=== PATIENT | female | born 1990 | race Two or more races ===

== ENCOUNTER 2019-03-02 01:29 | Emergency (ER) | payer MEDICAID ==
[~2019-03-02] VITALS: Ht 154.9 cm; Wt 88.5 kg
[2019-03-02 01:40] VITALS: BP 114/74
--- NOTE | 2019-03-02 01:41 | NUR ---
ED Nurse Note: Patient presents with complaints of itchy rash, unknown status. urine collected prior to rooming.
[2019-03-02] MEDS ORDERED: Acetaminophen 500mg (ES) tab ORAL ONE (02:15)
[2019-03-02] MEDS ORDERED: DiphenhydrAMINE 25mg/10ml Elixir ORAL ONE (02:15)
[2019-03-02 02:30] LABS: APPEARANCE,URINE CLEAR; BILIRUBIN, URINE NEGATIVE (NEGATIVE); COLOR,URINE PALE YELLOW; GLUCOSE, URINE (UA) NEGATIVE (NEGATIVE); KETONES,URINE NEGATIVE (NEGATIVE); LEUKOCYTE ESTERASE ,URINE NEGATIVE (NEGATIVE); NITRITE,URINE NEGATIVE (NEGATIVE); PH,URINE 7 (4.5-8.0); PROTEIN,URINE NEGATIVE (NEGATIVE); UROBILINOGEN,URINE NORMAL MG/DL (0.0-1.0)
--- NOTE | 2019-03-02 02:55 | NUR ---
ED Nurse Note: Urine test order added as intended. awaiting results prior to discharge.
[2019-03-02] MEDS ORDERED: BENADRYL25 MG ORAL (03:21)
[2019-03-02] MEDS ORDERED: PREDNISONE20 MG ORAL (03:21)
[2019-03-02 03:38] VITALS: BP 114/74
--- NOTE | 2019-03-02 03:38 | NUR ---
ED Nurse Note: Patient cleared for discharge, ID band removed. Patient verbalized understanding of discharge instructions. Patient departed with all belongings.
--- NOTE | 2019-03-04 21:54 | Emergency Room Report ---
History of Present Illness General Chief Complaint: Skin Rash/Abscess Source: Patient Present Illness Allergies: Coded Allergies: No Known Allergies (Unverified , 03/02/19) Patient History Last Menstrual Period: 12/30/18 Now: Yes - unsure : 0 Para: 0 Nursing Documentation-[facility] Past Medical History: No History, Except For Hx Gastrointestinal Problems: Yes - gall stones Physical Exam Vital Signs Date Time Temp Pulse Resp B/P (MAP) Pulse Ox O2 Delivery O2 Flow Rate FiO2 03/02/19 01:40 98.2 79 16 114/74 97 Room Air Medical Decision Making Diagnostic Impression: Primary Impression: Urticaria Labs Test 03/02/19 01:50 Urine Color Pale yellow Urine Appearance Clear Urine pH 7 (4.5-8.0) Urine Specific [place] 1.005 (1.005-1.035) Urine Protein Negative (NEGATIVE) Urine Glucose (UA) Negative (NEGATIVE) Urine Ketones Negative (NEGATIVE) Urine Blood 1+ (NEGATIVE) Urine Nitrite Negative (NEGATIVE) Urine Bilirubin Negative (NEGATIVE) Urine Urobilinogen Normal MG/DL (0.0-1.0) Urine Leukocyte Esterase Negative (NEGATIVE) Urine RBC 0-2 /HPF (0 - 2) Urine WBC 0-2 /HPF (0 - 2) Urine Squamous Epithelial Cells Few /LPF (NONE/OCC) Urine Bacteria Occasional /HPF (NONE) Urine HCG, Qualitative Negative (NEGATIVE) Last Vital Signs Date Time Temp Pulse Resp B/P (MAP) Pulse Ox O2 Delivery O2 Flow Rate FiO2 03/02/19 03:38 98.2 79 16 114/74 97 Room Air Status: improved Disposition: HOME, SELF-CARE Condition: Stable Scripts Diphenhydramine Hcl* (BENADRYL*) 25 Mg Capsule 25 MG ORAL Q6H PRN for Itching, #30 CAP Prov: Louis Arora MD 03/02/19 Prednisone* (PREDNISONE*) 20 Mg Tablet 40 MG ORAL DAILY, #10 TAB Prov: Louis Arora MD 03/02/19 Patient Instructions: Louis Tinsley MD Mar 04, 2019 21:54
== END 2019-03-02 03:38 | disposition home or self-care (01) ==
LOC: EMR 01:59
DX: L50.9 Urticaria, unspecified (principal)
CPT/HCPCS: 81003; 81025; 99283

== ENCOUNTER 2019-03-17 21:53 | Emergency (ER) | payer MEDICAID ==
[~2019-03-17] VITALS: Ht 154.9 cm; Wt 88.5 kg
[~2019-03-17 21:53] MED LIST: BENADRYL25 MG ORAL; PREDNISONE20 MG ORAL
[2019-03-17 21:55] VITALS: BP 105/65
--- NOTE | 2019-03-17 21:55 | NUR ---
ED Nurse Note: pt ambulated to ed c/o upper left and right quadrant pain radiatin to the back x 3 days. pt states n/v/d is present. pt iv line established, blood and urine specimen sent to lab. mother kumar at bedside
--- NOTE | 2019-03-17 22:13 | Emergency Room Report ---
History of Present Illness General Chief Complaint: Abdominal Pain Source: Patient Present Illness HPI Is a 28-year-old female who has a history of gallstone. She presents with chief complaint of epigastric and upper quadrant pain. Onset for last 3 days. Pain going to her back and rating to the left side. GEN vomiting. Occasional diarrhea. No fever chills. Seen by primary care yesterday and had ultrasound done. She had an ultrasound 2 years prior and it showed gallstone. 8 out of 10. Vomiting is nonbloody nonbilious. Diarrhea is loose stool. Allergies: Coded Allergies: No Known Allergies (Unverified , 03/02/19) Patient History Past Medical History: see triage record, old chart reviewed Past Surgical History: none Pertinent Family History: none Social History: Denies: smoking Last Menstrual Period: 03/16/19 Now: No Immunizations: other Reviewed Nursing Documentation: PMH: Agreed; PSxH: Agreed Nursing Documentation-PMH Hx Gastrointestinal Problems: Yes - gall stones Review of Systems Eye: Denies: eye pain, blurred vision ENT: Denies: ear pain, nose congestion, throat swelling Respiratory: Denies: cough, shortness of breath Cardiovascular: Denies: chest pain, palpitations Gastrointestinal: Reports: abdominal pain, nausea, vomiting; Denies: diarrhea Musculoskeletal: Denies: back pain, joint pain Skin: Denies: rash Neurological: Denies: headache, numbness Endocrine: Denies: increased thirst, increased urine Hematologic/Lymphatic: Denies: easy bruising All Other Systems: negative except mentioned in HPI Physical Exam Vital Signs Date Time Temp Pulse Resp B/P (MAP) Pulse Ox O2 Delivery O2 Flow Rate FiO2 03/17/19 21:54 98.6 99 18 103/65 (78) 97 Room Air Sp02 EP Interpretation: reviewed, normal General Appearance: well appearing, no apparent distress, alert Head: normocephalic, atraumatic Eyes: bilateral eye PERRL, bilateral eye EOMI ENT: hearing grossly normal, normal pharynx Neck: full range of motion, supple, no meningismus Respiratory: chest non-tender, lungs clear, normal breath sounds Cardiovascular #1: regular rate, rhythm, no murmur Gastrointestinal: normal bowel sounds, no mass, no organomegaly, no bruit, non- distended, tenderness - RUQ Musculoskeletal: back normal, gait/station normal, normal range of motion Psychiatric: mood/affect normal Medical Decision Making Diagnostic Impression: Primary Impression: Biliary colic Additional Impression: Cholelithiasis Qualified Codes: K80.20 - Calculus of gallbladder without cholecystitis without obstruction ER Course Patient presents with right upper quadrant and epigastric pain. She has known gallstones. She had an ultrasound done yesterday already. I see no need to repeat. No evidence of or obstruction based on the lab. She felt better now. Will discharge home. No evidence of acute abdomen. Last Vital Signs Date Time Temp Pulse Resp B/P (MAP) Pulse Ox O2 Delivery O2 Flow Rate FiO2 03/17/19 21:54 98.6 99 18 103/65 (78) 97 Room Air Status: improved Disposition: HOME, SELF-CARE Condition: Stable Scripts Hydrocodone/Acetaminophen 5-325* (HYDROCODONE/ACETAMINOPHEN 5-325*) 1 Each Tablet 1 TAB ORAL Q6H PRN for For Pain, #20 TAB 0 Refills Prov: Solomon Garcia MD 03/17/19 Famotidine (PEPCID AC) 20 Mg Tablet 20 MG PO Q12HR, #30 TAB Prov: Solomon Garcia MD 03/17/19 Additional Instructions: Follow-up with your doctor in a week. You may need a referral to see a surgeon if continue with problem with your gallbladder. Return if symptoms worsen. Solomon Garcia MD Mar 17, 2019 22:13
[2019-03-17] MEDS ORDERED: Ketorolac 30mg Inj IV ONE (22:15)
[2019-03-17 22:20] LABS: APPEARANCE,URINE SLIGHTLY CLOUDY; BILIRUBIN, URINE NEGATIVE (NEGATIVE); GLUCOSE, URINE (UA) NEGATIVE (NEGATIVE); KETONES,URINE 4+ (NEGATIVE); LEUKOCYTE ESTERASE ,URINE 1+ (NEGATIVE); NITRITE,URINE NEGATIVE (NEGATIVE); PH,URINE 5 (4.5-8.0); PROTEIN,URINE 1+ (NEGATIVE); UROBILINOGEN,URINE 1 MG/DL (0.0-1.0)
[2019-03-17 22:22] LABS: COLOR,URINE YELLOW
[2019-03-17 22:43] LABS: ANION GAP 9 mmol/L (5-15); BLOOD UREA NITROGEN 10 mg/dL (7-18); CALCIUM 9.2 MG/DL (8.5-10.1); CARBON DIOXIDE 25 MMOL/L (21-32); CHLORIDE 101 MMOL/L (98-107); CREATININE 0.5 MG/DL (0.55-1.30); POTASSIUM 3.6 MMOL/L (3.5-5.1); SODIUM 135 MMOL/L (136-145)
[2019-03-17 22:47] LABS: ALANINE AMINOTRANSFERASE 46 U/L (12-78); ALBUMIN 3.8 G/DL (3.4-5.0); ALBUMIN/GLOBULIN RATIO 0.8 (1.0-2.7); ALKALINE PHOSPHATASE 59 U/L (46-116); ASPARTATE AMINO TRANSFERASE 19 U/L (15-37)
[2019-03-17 22:50] LABS: BASOPHILS % (AUTO) 1.6 % (0.0-2.0); EOSINOPHILS % (AUTO) 0.8 % (0.0-3.0); HEMATOCRIT 41.3 % (37.0-47.0); HEMOGLOBIN 13.8 G/DL (12.0-16.0); LYMPHOCYTES % (AUTO) 23.6 % (20.0-45.0); MEAN CORPUSCULAR VOLUME 85 FL (80-99); MONOCYTES % (AUTO) 7.6 % (1.0-10.0); NEUTROPHILS % (AUTO) 66.3 % (45.0-75.0); PLATELET COUNT 305 K/UL (150-450); RED BLOOD COUNT 4.84 M/UL (4.20-5.40); RED CELL DISTRIBUTION WIDTH 13.6 % (11.6-14.8)
[2019-03-17] MEDS ORDERED: Morphine Sulfate 4mg/ml Inj (IV USE ONLY) ONE (22:50)
[2019-03-17] MEDS ORDERED: Morphine Sulfate 4mg/ml Inj (IV USE ONLY) IVP ONE (23:00)
[2019-03-17] MEDS ORDERED: PEPCID AC20 M2 PO (23:00)
[2019-03-17] MEDS ORDERED: HYDROCODON-ACE1 EA15 ORAL (23:00)
--- NOTE | 2019-03-17 23:20 | NUR ---
ER DISCHARGE NOTE: Patient is cleared to be discharged per ERMD, pt is aox4, on room air, with stable vital signs. pt was given dc and prescription instructions, pt was able to verbalize understanding, pt id band and iv site removed without complications. pt is able to ambulate with steady gait. pt took all belongings.
[2019-03-17 23:21] VITALS: BP 103/56
== END 2019-03-17 23:20 | disposition home or self-care (01) ==
LOC: EMR 23:17
DX: K80.20 Calculus of gallbladder without cholecystitis without obstruction (principal)
CPT/HCPCS: 36415; 80053; 81003; 81025; 83690; 85025; 96361; 96374; 96375; 99284; J1885; J2270; J2405

== ENCOUNTER 2019-04-08 06:06 | Inpatient (IN) | payer MEDICAID ==
[~2019-04-08] VITALS: Ht 154.9 cm; Wt 76.2 kg
[2019-04-08] VITALS (8 sets, daily range): BP systolic 108–132; BP diastolic 58–77
[~2019-04-08 06:06] MED LIST changes: +CEPHALEXIN500 MG ORAL; +FAMOTIDINE20 MG ORAL; +HYDROCODON-ACE1 EA15 ORAL; +PEPCID AC20 M2 PO; +ROBAXIN-750750 MG PO; +VOLTAREN100 G1 TP
[2019-04-08] MEDS ORDERED: Morphine Sulfate 2mg/ml Inj(IV/IM USE ONLY) IVP ONE (06:30)
[2019-04-08] MEDS ORDERED: Ketorolac 30mg Inj IV ONE (06:30)
--- NOTE | 2019-04-08 06:34 | Emergency Room Report ---
History of Present Illness General Chief Complaint: Abdominal Pain Source: Patient Present Illness HPI Disclaimer: Please note that this report is being documented using [employer] technology. This can lead to erroneous entry secondary to incorrect interpretation by the dictating instrument. HPI: This a 28-year-old female with a history of obesity and gallstones presenting for evaluation of abdominal pain. She was seen in the emergency department 2 days ago complaining of right upper quadrant abdominal pain nausea and vomiting. She was diagnosed with gallstones earlier this month by an outpatient ultrasound performed by her PCP. She has not yet seen a surgeon but did follow-up with her PCP yesterday. States that overnight she began to have worsening right upper quadrant epigastric abdominal pain as well as pain in the shoulders bilaterally. She is having bilious emesis but nonbloody. Denies diarrhea, lower pelvic pain, vaginal bleeding, vaginal discharge, dysuria, hematuria. She did note some fevers and a temperature of 100 degrees yesterday. She was treated for urinary tract infection on last visit with Keflex and received a shot of Rocephin at her PMDs as well. Patient states that on her PCP visit yesterday they informed her that they lost the results of her ultrasound and she is scheduled for repeat in 2 weeks. She otherwise denies current fever, chills, chest pain, shortness of breath, sore throat, cough, new rash PMH: GERD, gallstones, obesity PSH: Denies Allergies: Denies Social Hx: Denies drug, alcohol or tobacco use Allergies: Coded Allergies: No Known Allergies (Unverified , 03/02/19) Patient History Last Menstrual Period: 03/01/19 Now: No Nursing Documentation-PMH Past Medical History: No History, Except For Review of Systems All Other Systems: negative except mentioned in HPI Physical Exam Vital Signs Date Time Temp Pulse Resp B/P (MAP) Pulse Ox O2 Delivery O2 Flow Rate FiO2 04/08/19 06:15 98.4 102 18 117/75 (89) 95 Room Air General: Awake and alert, no acute distress HEENT: NC/AT. EOMI. Neck: Supple, trachea midline Chest Wall: No tenderness, no deformity Cardiovascular: RRR. S1 and S2 normal. No murmur appreciated Resp: Normal work of breathing. No cough, wheezing or crackles appreciated Abdomen: Abdomen is soft, nondistended. Obese. Tenderness in the epigastrium and right upper quadrant. There is positive Dumont sign. No tenderness in the lower quadrants. No tenderness in the left upper quadrant. Skin: Intact. No abrasions, laceration or rash over the exposed skin MSK: Normal tone and bulk. Moving all extremities. No obvious deformity. Neuro: Awake and alert. Mentating appropriately. Back/Spine: Mild flank pain bilaterally and CVA tenderness Medical Decision Making Diagnostic Impression: Primary Impression: Acute cholecystitis Additional Impression: Abdominal pain ER Course This 28-year-old female with a history of gallstones presenting for evaluation of bilious emesis and worsening right upper quadrant epigastric abdominal pain beginning last night. The patient is currently being treated for UTI with Keflex from her last emergency department visit 2 days ago. We will start IV fluids, antiemetics, pain medication, repeat labs and send the patient for an ultrasound of the right upper quadrant to rule out acute cholecystitis. Laboratory Tests Test 04/08/19 06:35 White Blood Count 17.7 K/UL (4.8-10.8) H Red Blood Count 4.46 M/UL (4.20-5.40) Hemoglobin 12.9 G/DL (12.0-16.0) Hematocrit 39.2 % (37.0-47.0) Mean Corpuscular Volume 88 FL (80-99) Mean Corpuscular Hemoglobin 28.8 PG (27.0-31.0) Mean Corpuscular Hemoglobin Concent 32.8 G/DL (32.0-36.0) Red Cell Distribution Width 12.8 % (11.6-14.8) Platelet Count 250 K/UL (150-450) Mean Platelet Volume 9.0 FL (6.5-10.1) Neutrophils (%) (Auto) 76.9 % (45.0-75.0) H Lymphocytes (%) (Auto) 14.9 % (20.0-45.0) L Monocytes (%) (Auto) 6.8 % (1.0-10.0) Eosinophils (%) (Auto) 0.7 % (0.0-3.0) Basophils (%) (Auto) 0.7 % (0.0-2.0) Urine Color Yellow Urine Appearance Clear Urine pH 6 (4.5-8.0) Urine Specific [place] 1.020 (1.005-1.035) Urine Protein 2+ (NEGATIVE) H Urine Glucose (UA) Negative (NEGATIVE) Urine Ketones 4+ (NEGATIVE) H Urine Blood 4+ (NEGATIVE) H Urine Nitrite Negative (NEGATIVE) Urine Bilirubin Negative (NEGATIVE) Urine Urobilinogen 1 MG/DL (0.0-1.0) H Urine Leukocyte Esterase 3+ (NEGATIVE) H Urine RBC 5-10 /HPF (0 - 2) H Urine WBC 10-15 /HPF (0 - 2) H Urine Squamous Epithelial Cells Few /LPF (NONE/OCC) Urine Bacteria Few /HPF (NONE) Urine Mucus Few /LPF (NONE/OCC) H Urine HCG, Qualitative Negative (NEGATIVE) Sodium Level 140 MMOL/L (136-145) Potassium Level 3.5 MMOL/L (3.5-5.1) Chloride Level 103 MMOL/L (98-107) Carbon Dioxide Level 24 MMOL/L (21-32) Anion Gap 13 mmol/L (5-15) Blood Urea Nitrogen 11 mg/dL (7-18) Creatinine 0.5 MG/DL (0.55-1.30) L Estimate Glomerular Filtration Rate > 60 mL/min (>60) Glucose Level 107 MG/DL (74-106) H Calcium Level 9.2 MG/DL (8.5-10.1) Total Bilirubin 1.2 MG/DL (0.2-1.0) H Direct Bilirubin 0.3 MG/DL (0.0-0.3) Aspartate Amino Transferase (AST) 23 U/L (15-37) Alanine Aminotransferase (ALT) 58 U/L (12-78) Alkaline Phosphatase 58 U/L (46-116) Total Protein 8.3 G/DL (6.4-8.2) H Albumin 3.4 G/DL (3.4-5.0) Globulin 4.9 g/dL Albumin/Globulin Ratio 0.7 (1.0-2.7) L Lipase 76 U/L (73-393) Reevaluation Time: 08:10 Last Vital Signs Date Time Temp Pulse Resp B/P (MAP) Pulse Ox O2 Delivery O2 Flow Rate FiO2 04/08/19 06:15 98.4 102 18 117/75 (89) 95 Room Air Status: unchanged Reevaluation Impression Labs show an elevated white count that is increasing from prior visits, persistent leukocyte esterase but few are bacteria seen on this urinalysis. LFTs are within normal limits. Ultrasound shows large stones at the neck of the gallbladder with a dilated CBD, trace pericholecystic fluid and edematous gallbladder wall. There is positive sonographic Dumont's. Will discuss with surgery. IV fluids and pain medications are continued 0830: She has been evaluated by general surgery who will order a HIDA scan and the patient will be admitted medically. Likely cholecystectomy as an inpatient. She understands and agrees to the treatment plan will be admitted after HIDA scan Disposition: ADMITTED INPATIENT Condition: Serious Pa Dinh MD Apr 08, 2019 06:34
--- NOTE | 2019-04-08 06:35 | NUR ---
ED Nurse Note: Recieved pt from home, here with c/o abdominal pain with nausea intermittently for 1 week w/ gallstones, pt is awake, alert and orieneted x 4, ambulatory, denies cp, sob, or any other complaints, pt urine collected and assisted with gowning, will resume care as ordered and closely monitor.
[2019-04-08 07:00] LABS: APPEARANCE,URINE CLEAR; BILIRUBIN, URINE NEGATIVE (NEGATIVE); GLUCOSE, URINE (UA) NEGATIVE (NEGATIVE); KETONES,URINE 4+ (NEGATIVE); LEUKOCYTE ESTERASE ,URINE 3+ (NEGATIVE); NITRITE,URINE NEGATIVE (NEGATIVE); PH,URINE 6 (4.5-8.0); PROTEIN,URINE 2+ (NEGATIVE); UROBILINOGEN,URINE 1 MG/DL (0.0-1.0)
[2019-04-08 07:10] LABS: ANION GAP 13 mmol/L (5-15); BLOOD UREA NITROGEN 11 mg/dL (7-18); CALCIUM 9.2 MG/DL (8.5-10.1); CARBON DIOXIDE 24 MMOL/L (21-32); CHLORIDE 103 MMOL/L (98-107); CREATININE 0.5 MG/DL (0.55-1.30); POTASSIUM 3.5 MMOL/L (3.5-5.1); SODIUM 140 MMOL/L (136-145)
[2019-04-08 07:11] LABS: COLOR,URINE YELLOW
[2019-04-08 07:19] LABS: ALANINE AMINOTRANSFERASE 58 U/L (12-78); ALBUMIN 3.4 G/DL (3.4-5.0); ALBUMIN/GLOBULIN RATIO 0.7 (1.0-2.7); ALKALINE PHOSPHATASE 58 U/L (46-116); ASPARTATE AMINO TRANSFERASE 23 U/L (15-37); BILIRUBIN,TOTAL 1.2 MG/DL (0.2-1.0)
--- NOTE | 2019-04-08 07:25 | NUR ---
ED Nurse Note: US staff Tangela at the bed side. Pt with no distress and speaks in full sentences.
[2019-04-08] MEDS ORDERED: NKM (07:27)
[2019-04-08 07:31] LABS: BILIRUBIN,DIRECT 0.3 MG/DL (0.0-0.3)
[2019-04-08 07:34] LABS: BASOPHILS % (AUTO) 0.7 % (0.0-2.0); EOSINOPHILS % (AUTO) 0.7 % (0.0-3.0); HEMATOCRIT 39.2 % (37.0-47.0); HEMOGLOBIN 12.9 G/DL (12.0-16.0); LYMPHOCYTES % (AUTO) 14.9 % (20.0-45.0); MEAN CORPUSCULAR VOLUME 88 FL (80-99); MONOCYTES % (AUTO) 6.8 % (1.0-10.0); NEUTROPHILS % (AUTO) 76.9 % (45.0-75.0); PLATELET COUNT 250 K/UL (150-450); RED BLOOD COUNT 4.46 M/UL (4.20-5.40); RED CELL DISTRIBUTION WIDTH 12.8 % (11.6-14.8); WHITE BLOOD COUNT 17.7 K/UL (4.8-10.8)
[2019-04-08] MEDS ORDERED: Morphine Sulfate 4mg/ml Inj (IV USE ONLY) IVP ONE (08:00)
--- NOTE | 2019-04-08 08:15 | NUR ---
ED Nurse Note: Dr Keita at the bed side.
--- NOTE | 2019-04-08 08:26 | Consultation ---
History of Present Illness General Date patient seen: Apr 08, 2019 Reason for Hospitalization: Abdominal Pain Present Illness HPI 28F otherwise healthy presented to ED with complaints of epigastric / RUQ abdominal pain x 1 day with associated nausea and emesis. Pain 8/10 cramping sharp epigastric / RUQ with radiation to the back. Associated nausea and bilious emesis. Has had similar episodes for the past year. Has been following with her PCP outpatient for evaluation and work up. Hx diagnosed with cholelithiasis and was planning for cholecystectomy given recurrent symptoms. Currently with persistent RUQ pain, tenderness, and leukocytosis. LFT's okay. US with GB wall thickening and pericholecystic fluid. Surgery called to evaluate and assist with care. patient seen, chart reviewed, patient examined. Allergies: Coded Allergies: No Known Allergies (Unverified , 03/02/19) Medication History Scheduled Cephalexin* (Keflex*), 500 MG ORAL EVERY 6 HOURS Diclofenac Sodium (Voltaren), 2 GM TP TID Famotidine (Pepcid Ac), 20 MG PO Q12HR Famotidine (Famotidine), 20 MG ORAL DAILY Methocarbamol* (Robaxin-750*), 750 MG PO TID No Known Medications* (NKM - No Known Medications*), 0 ., (Reported) Scheduled PRN Hydrocodone/Acetaminophen 5-325* (Hydrocodone/Acetaminophen 5-325*), 1 TAB ORAL Q6H PRN for For Pain Patient History History Provided By: Patient Healthcare decision maker Resuscitation status Advanced Directive on File Past Medical/Surgical History Past Medical/Surgical History: (1) Abdominal pain (2) Acute cholecystitis Review of Systems Review of Symptoms General ROS: no weight loss or fever Psychological ROS: no depression or mood changes, no memory loss Ophthalmic ROS: no visual changes or eye irritation ENT ROS: no nasal congestion, hearing loss, dizziness Allergy and Immunology ROS: no allergic symptoms or urticaria Hematological and Lymphatic ROS: no swollen glands, unusual bleeding or bruising Endocrine ROS: no polyuria, polydipsia, weight changes, temperature intolerance Respiratory ROS: no cough, shortness of breath, or wheezing Cardiovascular ROS: no chest pain or dyspnea on exertion Gastrointestinal ROS: abdominal pain, no bright red blood in stool. Musculoskeletal ROS: no myalgias or arthralgias Neurological ROS: no TIA or stroke symptoms Dermatological ROS: no new or changing skin lesions, rashes or pruritis Physical Exam Physical Exam General appearance: alert, cooperative, no distress, appears stated age Head: Normocephalic, without obvious abnormality, atraumatic Eyes: conjunctivae/corneas clear. PERRL, EOM's intact. Fundi benign Throat: Lips, mucosa, and tongue normal. Teeth and gums normal Neck: supple, symmetrical, trachea midline, no adenopathy, thyroid: not enlarged, symmetric, no tenderness/mass/nodules, no carotid bruit and no JVD Lungs: clear to auscultation bilaterally Heart: regular rate and rhythm, S1, S2 normal, no murmur, click, rub or gallop Abdomen: soft, RUQ-tender. Bowel sounds normal. No masses, no organomegaly Extremities: extremities normal, atraumatic, no cyanosis or edema Pulses: 2+ and symmetric Skin: Skin color, texture, turgor normal. No rashes or lesions Neurologic: Grossly normal Last 24 Hour Vital Signs Date Time Temp Pulse Resp B/P (MAP) Pulse Ox O2 Delivery O2 Flow Rate FiO2 04/08/19 07:30 98.6 104 20 118/66 98 Room Air 04/08/19 07:20 98.4 04/08/19 07:20 98.4 04/08/19 06:25 102 18 Room Air 04/08/19 06:15 98.4 102 18 117/75 (89) 95 Room Air Intake and Output 04/07/19 04/08/19 19:00 07:00 Output Total 200 ml Balance -200 ml Output Urine Total 200 ml Laboratory Tests Test 04/08/19 06:35 White Blood Count 17.7 K/UL (4.8-10.8) H Red Blood Count 4.46 M/UL (4.20-5.40) Hemoglobin 12.9 G/DL (12.0-16.0) Hematocrit 39.2 % (37.0-47.0) Mean Corpuscular Volume 88 FL (80-99) Mean Corpuscular Hemoglobin 28.8 PG (27.0-31.0) Mean Corpuscular Hemoglobin Concent 32.8 G/DL (32.0-36.0) Red Cell Distribution Width 12.8 % (11.6-14.8) Platelet Count 250 K/UL (150-450) Mean Platelet Volume 9.0 FL (6.5-10.1) Neutrophils (%) (Auto) 76.9 % (45.0-75.0) H Lymphocytes (%) (Auto) 14.9 % (20.0-45.0) L Monocytes (%) (Auto) 6.8 % (1.0-10.0) Eosinophils (%) (Auto) 0.7 % (0.0-3.0) Basophils (%) (Auto) 0.7 % (0.0-2.0) Urine Color Yellow Urine Appearance Clear Urine pH 6 (4.5-8.0) Urine Specific [place] 1.020 (1.005-1.035) Urine Protein 2+ (NEGATIVE) H Urine Glucose (UA) Negative (NEGATIVE) Urine Ketones 4+ (NEGATIVE) H Urine Blood 4+ (NEGATIVE) H Urine Nitrite Negative (NEGATIVE) Urine Bilirubin Negative (NEGATIVE) Urine Urobilinogen 1 MG/DL (0.0-1.0) H Urine Leukocyte Esterase 3+ (NEGATIVE) H Urine RBC 5-10 /HPF (0 - 2) H Urine WBC 10-15 /HPF (0 - 2) H Urine Squamous Epithelial Cells Few /LPF (NONE/OCC) Urine Bacteria Few /HPF (NONE) Urine Mucus Few /LPF (NONE/OCC) H Urine HCG, Qualitative Negative (NEGATIVE) Sodium Level 140 MMOL/L (136-145) Potassium Level 3.5 MMOL/L (3.5-5.1) Chloride Level 103 MMOL/L (98-107) Carbon Dioxide Level 24 MMOL/L (21-32) Anion Gap 13 mmol/L (5-15) Blood Urea Nitrogen 11 mg/dL (7-18) Creatinine 0.5 MG/DL (0.55-1.30) L Estimat Glomerular Filtration Rate > 60 mL/min (>60) Glucose Level 107 MG/DL (74-106) H Calcium Level 9.2 MG/DL (8.5-10.1) Total Bilirubin 1.2 MG/DL (0.2-1.0) H Direct Bilirubin 0.3 MG/DL (0.0-0.3) Aspartate Amino Transf (AST/SGOT) 23 U/L (15-37) Alanine Aminotransferase (ALT/SGPT) 58 U/L (12-78) Alkaline Phosphatase 58 U/L (46-116) Total Protein 8.3 G/DL (6.4-8.2) H Albumin 3.4 G/DL (3.4-5.0) Globulin 4.9 g/dL Albumin/Globulin Ratio 0.7 (1.0-2.7) L Lipase 76 U/L (73-393) Height (Feet): 5 Height (Inches): 1.00 Weight (Pounds): 196 Medications Current Medications Medications (Trade) Dose Ordered Sig/Marnie Route PRN Reason Start Time Stop Time Status Last Admin Dose Admin Sodium Chloride 1,000 ml @ 999 mls/hr Q1H1M ONCE IV 04/08/19 08:15 04/08/19 09:15 04/08/19 08:11 Assessment/Plan Problem List: (1) Acute cholecystitis Assessment & Plan: 28F with abd pain, n/v, leukocytosis. US with GB wall thickening and perichole fluid. exam with RUQ tenderness + murphys. NPO IV fluids HIDA ordered IV abx will follow with recs. thank you for allowing me to participate in patients care. ICD Codes: K81.0 - Acute cholecystitis SNOMED: 35026035 (2) Abdominal pain ICD Codes: R10.9 - Unspecified abdominal pain SNOMED: 46975271 Luis Miguel Keita Apr 08, 2019 08:26
--- NOTE | 2019-04-08 09:47 | NUR ---
ED Nurse Note: Pt/family member are aware of hospital admission and VSS. Waiting for isotope.
--- NOTE | 2019-04-08 10:45 | Diagnostic Imaging Report ---
Indication: Abdominal pain, elevated bilirubin, leukocytosis Technique: Esposito-scale and duplex images of the upper abdomen were obtained Comparison: none Findings: Gallbladder demonstrates gallstones. Gallbladder wall is thickened, measuring up to 5 mm thick. There is also some gallbladder wall edema and trace pericholecystic fluid. There is trace cholecystic fluid or sonographic Dumont sign is positive. Common bile duct measures 7 mm in diameter. No intrahepatic biliary ductal dilatation. Liver is somewhat enlarged, demonstrates diffusely increased echogenicity, consistent with diffuse hepatocellular disease, most likely fatty change. Portal vein and hepatic veins are patent. Pancreas is unremarkable. Spleen is unremarkable. Left kidney measures 12.8 cm in length. Right kidney measures 11.4 cm length. Both kidneys demonstrate normal echogenicity. There is no hydronephrosis. No focal abnormality . Non-aneurysmal abdominal aorta . Impression: Cholelithiasis. Gallbladder wall thickening and positive sonographic Dumont's sign raises concern for acute cholecystitis Mildly dilated common bile duct. Downstream obstruction not excludable. Correlate with liver function tests, consider MRCP if clinically indicated Liver demonstrates diffusely increased echogenicity, consistent with diffuse hepatocellular disease, most likely fatty change. It is somewhat enlarged
--- NOTE | 2019-04-08 11:43 | NUR ---
ED Nurse Note: Pt taken to Nuclear medicine dept.
[2019-04-08] MEDS ORDERED: Morphine Sulfate 2mg/ml Inj(IV/IM USE ONLY) IVP SCH (12:45)
--- NOTE | 2019-04-08 13:08 | GI Initial Consult Note ---
History of Present Illness General Date patient seen: Apr 08, 2019 Time patient seen: 13:02 Reason for Hospitalization: Abdominal Pain Reason for Consultation: CHOLELITHASIS Present Illness HPI his a 28-year-old female with a history of obesity and gallstones presenting for evaluation of abdominal pain. She was seen in the emergency department 2 days ago complaining of right upper quadrant abdominal pain nausea and vomiting. She was diagnosed with gallstones earlier this month by an outpatient ultrasound performed by her PCP. She has not yet seen a surgeon but did follow-up with her PCP yesterday. States that overnight she began to have worsening right upper quadrant epigastric abdominal pain as well as pain in the shoulders bilaterally. She is having bilious emesis but nonbloody. Denies diarrhea, lower pelvic pain, vaginal bleeding, vaginal discharge, dysuria, hematuria. She did note some fevers and a temperature of 100 degrees yesterday. She was treated for urinary tract infection on last visit with Keflex and received a shot of Rocephin at her PMDs as well. Patient states that on her PCP visit yesterday they informed her that they lost the results of her ultrasound and she is scheduled for repeat in 2 weeks. She otherwise denies current fever, chills, chest pain, shortness of breath, sore throat, cough, new rash. GI consulted for reported abdominal pain, nausea and vomiting. Initial HPI as seen above. Patient seen, no apparent distress alert and oriented. Patient currently scheduled for HIDA scan. Abdominal ultrasound shows cholelithiasis, gallbladder wall thickening and positive sonographic Dumont's sign. Mildly dilated common bile duct 7 mm. Downstream obstruction not excludable. Liver demonstrates diffuse increase echogenicity, consistent with diffuse hepatocellular disease. Laboratory data reviewed; WBC 17.7, no anemia, total bilirubin of 1.2, lipase of 76. No history of endoscopic colonoscopy. Home Meds Active Scripts Famotidine (FAMOTIDINE) 20 Mg Tablet, 20 MG ORAL DAILY, #30 TAB 0 Refills Prov:Bria Ruelas 04/06/19 Methocarbamol* (ROBAXIN-750*) 750 Mg Tablet, 750 MG PO TID, #21 TAB 0 Refills Prov:RayshawnmogBria bartlett 04/06/19 Diclofenac Sodium (VOLTAREN) 100 Gm Gel..gram., 2 GM TP TID, #100 GM Prov:Bria Ruelas 04/06/19 Cephalexin* (KEFLEX*) 500 Mg Capsule, 500 MG ORAL EVERY 6 HOURS for 7 Days, #28 CAP Prov:Bria Ruelas 04/06/19 Hydrocodone/Acetaminophen 5-325* (HYDROCODONE/ACETAMINOPHEN 5-325*) 1 Each Tablet, 1 TAB ORAL Q6H PRN for For Pain, #20 TAB 0 Refills Prov:Solomon Garcia MD 03/17/19 Famotidine (PEPCID AC) 20 Mg Tablet, 20 MG PO Q12HR, #30 TAB Prov:Solomon Garcia MD 03/17/19 Reported Medications No Known Medications* (NKM - No Known Medications*) ., 0 ., 0 Refills 04/08/19 Med list reviewed/reconciled: Yes Allergies: Coded Allergies: No Known Allergies (Unverified , 03/02/19) Patient History History Provided By: Patient PMH Narrative PMH: GERD, gallstones, obesity PSH: Denies Allergies: Denies Social Hx: Denies drug, alcohol or tobacco use Allergies: Coded Allergies: No Known Allergies (Unverified , 03/02/19) Patient History Last Menstrual Period: 03/01/19 Now: No Nursing Documentation-PM Past Medical History: No History, Except For Social History: Denies: smoking, alcohol use, drug use, other Review of Systems All Other Systems: negative except mentioned in HPI Physical Exam Vital Signs Date Time Temp Pulse Resp B/P (MAP) Pulse Ox O2 Delivery O2 Flow Rate FiO2 04/08/19 06:15 98.4 102 18 117/75 (89) 95 Room Air Sp02 EP Interpretation: reviewed, normal Labs Laboratory Tests Test 04/08/19 06:35 White Blood Count 17.7 K/UL (4.8-10.8) H Red Blood Count 4.46 M/UL (4.20-5.40) Hemoglobin 12.9 G/DL (12.0-16.0) Hematocrit 39.2 % (37.0-47.0) Mean Corpuscular Volume 88 FL (80-99) Mean Corpuscular Hemoglobin 28.8 PG (27.0-31.0) Mean Corpuscular Hemoglobin Concent 32.8 G/DL (32.0-36.0) Red Cell Distribution Width 12.8 % (11.6-14.8) Platelet Count 250 K/UL (150-450) Mean Platelet Volume 9.0 FL (6.5-10.1) Neutrophils (%) (Auto) 76.9 % (45.0-75.0) H Lymphocytes (%) (Auto) 14.9 % (20.0-45.0) L Monocytes (%) (Auto) 6.8 % (1.0-10.0) Eosinophils (%) (Auto) 0.7 % (0.0-3.0) Basophils (%) (Auto) 0.7 % (0.0-2.0) Urine Color Yellow Urine Appearance Clear Urine pH 6 (4.5-8.0) Urine Specific [place] 1.020 (1.005-1.035) Urine Protein 2+ (NEGATIVE) H Urine Glucose (UA) Negative (NEGATIVE) Urine Ketones 4+ (NEGATIVE) H Urine Blood 4+ (NEGATIVE) H Urine Nitrite Negative (NEGATIVE) Urine Bilirubin Negative (NEGATIVE) Urine Urobilinogen 1 MG/DL (0.0-1.0) H Urine Leukocyte Esterase 3+ (NEGATIVE) H Urine RBC 5-10 /HPF (0 - 2) H Urine WBC 10-15 /HPF (0 - 2) H Urine Squamous Epithelial Cells Few /LPF (NONE/OCC) Urine Bacteria Few /HPF (NONE) Urine Mucus Few /LPF (NONE/OCC) H Urine HCG, Qualitative Negative (NEGATIVE) Sodium Level 140 MMOL/L (136-145) Potassium Level 3.5 MMOL/L (3.5-5.1) Chloride Level 103 MMOL/L (98-107) Carbon Dioxide Level 24 MMOL/L (21-32) Anion Gap 13 mmol/L (5-15) Blood Urea Nitrogen 11 mg/dL (7-18) Creatinine 0.5 MG/DL (0.55-1.30) L Estimat Glomerular Filtration Rate > 60 mL/min (>60) Glucose Level 107 MG/DL (74-106) H Calcium Level 9.2 MG/DL (8.5-10.1) Total Bilirubin 1.2 MG/DL (0.2-1.0) H Direct Bilirubin 0.3 MG/DL (0.0-0.3) Aspartate Amino Transf (AST/SGOT) 23 U/L (15-37) Alanine Aminotransferase (ALT/SGPT) 58 U/L (12-78) Alkaline Phosphatase 58 U/L (46-116) Total Protein 8.3 G/DL (6.4-8.2) H Albumin 3.4 G/DL (3.4-5.0) Globulin 4.9 g/dL Albumin/Globulin Ratio 0.7 (1.0-2.7) L Lipase 76 U/L (73-393) General Appearance: well appearing, no apparent distress, alert, obese Head: normocephalic EENT: PERRL/EOMI, normal ENT inspection Neck: supple Respiratory: normal breath sounds, no respiratory distress Cardiovascular: normal rate Gastrointestinal: normal inspection, non tender, soft, normal bowel sounds, non -distended Rectal: deferred Genitourinary: no CVA tenderness Musculoskeletal: normal inspection, back normal Neurologic: normal inspection, alert, oriented x3, responsive Psychiatric: normal inspection, judgement/insight normal, memory normal Skin: normal inspection, normal color, no rash, warm/dry, palpation normal, well hydrated Lymphatic: normal inspection, no adenopathy Current Medications Current Medications Medications (Trade) Dose Ordered Sig/Marnie Route PRN Reason Start Time Stop Time Status Last Admin Dose Admin Morphine Sulfate (Morphine Sulfate) 2 mg ONCE IVP 04/08/19 12:45 04/08/19 14:00 04/08/19 12:53 GI: Plan Problems: (1) Abdominal pain (2) Acute cholecystitis Plan Abdominal ultrasound reviewed Patient pending HIDA scan We will defer MRCP that at this time given normal LFTs and normal lipase levels Follow-up with surgical recommendations for possible cholecystectomy Maintain n.p.o. plus IV fluids Pain management Zofran as needed follow labs Discussed with Dr. Lu. Thank you for this patient referral, we will follow. The patient was seen and examined at bedside and all new and available data was reviewed in the patients chart. I agree with the above findings, impression and plan. (Patient seen earlier today. Signature stamp does not reflect patient encounter time.). - MD Radha Ramos,[facility] Apr 08, 2019 13:08
[2019-04-08] MEDS ORDERED: Mylanta II UD 30ml ORAL PRN (13:30)
--- NOTE | 2019-04-08 13:39 | NUR ---
NM Hepatobiliary (HIDA) scan complete.
--- NOTE | 2019-04-08 13:40 | NUR ---
ED Nurse Note: Pt came back from Nuclear medicine dept. VSS.
--- NOTE | 2019-04-08 13:46 | NUR ---
ED Nurse Note: Report given to Darrell SOTELO of Med Surg unit.
--- NOTE | 2019-04-08 13:52 | NUR ---
ED Nurse Note: Pt transferred to Med Surg unit via new assisted by Kristan gerard. Belonging sent with pt. JACQUELINE.
--- NOTE | 2019-04-08 14:07 | NUR ---
NURSE NOTES: received pt awake alert, aox 4 ambulatory, no c/o pain at this time. paged dr Lay for admit orders awaiting call back.
--- NOTE | 2019-04-08 14:12 | Pre-Procedure Note/Attestation ---
Pre-Procedure Note/Attestation Complete Prior to Procedure Planned Procedure: not applicable Procedure Narrative: laparoscopic cholecystectomy possible open Indications for Procedure Pre-Operative Diagnosis: acute cholecystitis Attestation I attest that I discussed the nature of the procedure; its benefits; risks and complications; and alternatives (and the risks and benefits of such alternatives ), prior to the procedure, with the patient (or the patient's legal independent sales representative). I attest that, if there was a reasonable possibility of needing a blood transfusion, the patient (or the patient's legal independent sales representative) was given the [facility] standardized written summary, pursuant to the Jose Reema Blood Safety Act ([place] Health and Safety Code # 1645, as amended). I attest that I re-evaluated the patient just prior to the surgery and that there has been no change in the patient's H&P, except as documented below: Luis Miguel Keita Apr 08, 2019 14:12
--- NOTE | 2019-04-08 15:00 | NUR ---
NURSE NOTES: Spoke to regarding admission order and new order received. Order read back and carried out.
[2019-04-08] MEDS: NS w/KCl 20mEq 1000ml 1,000 ML IV SCH (15:20)
[2019-04-08] MEDS: Piperacillin/Tazobactam 3.375 GM in NS 110 ML IVPB SCH ×2 (15:20→21:25)
--- NOTE | 2019-04-08 17:29 | Diagnostic Imaging Report ---
Indications: Reason For Exam: ABD PAIN Technique: IV administration mCi 99 M technetium Choletec. Serial images obtained over the abdomen for 2 hrs . At one hour, IV administration 2 mg of morphine Comparison: None Findings: Prompt tracer uptake within the liver. Extrahepatic bile ducts are seen at 22 minutes. Excretion into the duodenum demonstrated at 25 minutes. The gallbladder is never visualized . Impression: Nonvisualization of the gallbladder. This is concerning for acute cholecystitis Patent common bile duct Findings discussed by phone with Dr. Keita at approximately [phone]
--- NOTE | 2019-04-08 19:30 | NUR ---
NURSE NOTES: Received report from DEEPAK Cortez and rounds made with outgoing nurse. Received pt in bed, AOX4, pain level 6/10, will medicate for pain, denies nausea, no distress noted. IV R forearm infiltrated, will re-insert new IV. Bed in lowest position and locked, side rails up x 2, call light within reach. will continue to monitor.
--- NOTE | 2019-04-08 19:30 | NUR ---
HAND-OFF: Report given to Remington RN and Marian RN. Patient in stable condition.
--- NOTE | 2019-04-08 20:00 | NUR ---
NURSE NOTES: New IV re-inserted R forearm # 22 patent and intact. IV fluid resumed. Will continue to monitor.
[2019-04-08] MEDS: Morphine Sulfate 2mg/ml Inj(IV/IM USE ONLY) IVP PRN (21:05)
[2019-04-09] VITALS (16 sets, daily range): BP systolic 102–130; BP diastolic 49–74
[2019-04-09] MEDS: NS w/KCl 20mEq 1000ml 1,000 ML IV SCH ×2 (01:00→11:00)
[2019-04-09] MEDS: Piperacillin/Tazobactam 3.375 GM in NS 110 ML IVPB SCH ×3 (05:38→22:03)
[2019-04-09 06:27] LABS: BASOPHILS % (AUTO) 0.6 % (0.0-2.0); EOSINOPHILS % (AUTO) 1.2 % (0.0-3.0); HEMATOCRIT 34.9 % (37.0-47.0); HEMOGLOBIN 11.1 G/DL (12.0-16.0); LYMPHOCYTES % (AUTO) 21.5 % (20.0-45.0); MEAN CORPUSCULAR VOLUME 89 FL (80-99); MONOCYTES % (AUTO) 6.4 % (1.0-10.0); NEUTROPHILS % (AUTO) 70.3 % (45.0-75.0); PLATELET COUNT 228 K/UL (150-450); RED BLOOD COUNT 3.91 M/UL (4.20-5.40); RED CELL DISTRIBUTION WIDTH 12.8 % (11.6-14.8); WHITE BLOOD COUNT 12.9 K/UL (4.8-10.8)
[2019-04-09 06:31] LABS: INR 1.1 (0.9-1.1)
[2019-04-09 06:51] LABS: ALANINE AMINOTRANSFERASE 50 U/L (12-78); ALBUMIN 2.8 G/DL (3.4-5.0); ALBUMIN/GLOBULIN RATIO 0.7 (1.0-2.7); ALKALINE PHOSPHATASE 70 U/L (46-116); ANION GAP 12 mmol/L (5-15); ASPARTATE AMINO TRANSFERASE 23 U/L (15-37); BILIRUBIN,TOTAL 0.7 MG/DL (0.2-1.0); BLOOD UREA NITROGEN 11 mg/dL (7-18); CALCIUM 8.6 MG/DL (8.5-10.1); CARBON DIOXIDE 21 MMOL/L (21-32); CHLORIDE 109 MMOL/L (98-107); CREATININE 0.5 MG/DL (0.55-1.30); POTASSIUM 3.5 MMOL/L (3.5-5.1); SODIUM 142 MMOL/L (136-145)
--- NOTE | 2019-04-09 07:00 | NUR ---
HAND-OFF: Report given to Remington SOTELO. Patient is in stable condition. Addendum: 04/09/19 at 1910 by Massiel Mcknight RN Edit: Note entered with incorrect time stamp. Please disregard
--- NOTE | 2019-04-09 07:20 | NUR ---
HAND-OFF: Report given to DEEPAK Rankin. Pt in stable condition.
--- NOTE | 2019-04-09 07:45 | General Progress Note ---
Assessment/Plan Problem List: (1) Acute cholecystitis ICD Codes: K81.0 - Acute cholecystitis SNOMED: [id number] Assessment/Plan: npo iv abx pending surg for today Subjective ROS Limited/Unobtainable: Yes Allergies: Coded Allergies: No Known Allergies (Unverified , 03/02/19) Objective Last 24 Hour Vital Signs Date Time Temp Pulse Resp B/P (MAP) Pulse Ox O2 Delivery O2 Flow Rate FiO2 04/09/19 04:00 97.9 103 18 123/67 (85) 96 04/08/19 23:43 97.9 99 18 110/58 (75) 97 04/08/19 21:00 Room Air 04/08/19 20:00 99.6 98 17 132/75 (94) 99 04/08/19 16:00 98.1 110 18 126/77 (93) 96 04/08/19 14:12 Room Air 04/08/19 14:00 98.4 108 20 114/63 (80) 98 04/08/19 13:52 98.5 79 19 118/72 100 Room Air 04/08/19 13:40 98.7 82 16 122/75 96 Room Air 04/08/19 13:23 98.7 04/08/19 11:30 98.5 89 18 115/70 100 Room Air 04/08/19 09:30 98.2 100 17 108/60 99 Room Air 04/08/19 08:34 98.4 Intake and Output 04/08/19 04/09/19 19:00 07:00 Intake Total 2100 ml 837.5 ml Balance 2100 ml 837.5 ml Intake IV Total 2100 ml 837.5 ml # Voids 3 Laboratory Tests 04/09/19 04:35: White Blood Count 12.9H, Red Blood Count 3.91L, Hemoglobin 11.1L, Hematocrit 34.9L, Mean Corpuscular Volume 89, Mean Corpuscular Hemoglobin 28.5, Mean Corpuscular Hemoglobin Concent 32.0, Red Cell Distribution Width 12.8, Platelet Count 228, Mean Platelet Volume 8.3, Neutrophils (%) (Auto) 70.3, Lymphocytes (% ) (Auto) 21.5, Monocytes (%) (Auto) 6.4, Eosinophils (%) (Auto) 1.2, Basophils ( %) (Auto) 0.6, Prothrombin Time 11.2, Prothromb Time International Ratio 1.1, Activated Partial Thromboplast Time 29, Sodium Level 142, Potassium Level 3.5, Chloride Level 109H, Carbon Dioxide Level 21, Anion Gap 12, Blood Urea Nitrogen 11, Creatinine 0.5L, Estimat Glomerular Filtration Rate > 60, Glucose Level 72L , Calcium Level 8.6, Total Bilirubin 0.7, Aspartate Amino Transf (AST/SGOT) 23, Alanine Aminotransferase (ALT/SGPT) 50, Alkaline Phosphatase 70, Total Protein 7.1, Albumin 2.8L, Globulin 4.3, Albumin/Globulin Ratio 0.7L Height (Feet): 5 Height (Inches): 1.00 Weight (Pounds): 168 General Appearance: alert EENT: normal ENT inspection Neck: supple Cardiovascular: normal rate Respiratory/Chest: lungs clear Abdomen: normal bowel sounds, non tender, soft Extremities: non-tender Pernell Lu MD Apr 09, 2019 07:45
--- NOTE | 2019-04-09 07:57 | NUR ---
NURSE NOTES: Received report from DEEPAK Macedo. Pt in bed, awake, talkative, mild anxiety about pending surgery, discussed plan of care, bed in lowest position, call light within reach.
--- NOTE | 2019-04-09 08:25 | NUR ---
NURSE NOTES: Patient taken down to surgery by transporter. Rojas
[2019-04-09] MEDS ORDERED: fentaNYL 100 mcg/2 mL IV ONE (08:46)
[2019-04-09] MEDS ORDERED: Propofol 200mg/20ml IV ONE (08:46)
[2019-04-09] MEDS ORDERED: Midazolam 2mg/2ml Inj ONE (08:46)
[2019-04-09] MEDS ORDERED: Lidocaine 1% MPF 10mg/ml 5ml ONE (08:46)
[2019-04-09] MEDS ORDERED: Lidocaine 1% 10mg/ml/Epi 0.005mg/ml 30ml vial INJ ONE (09:03)
[2019-04-09] MEDS ORDERED: Iothalamate Meglumine 60% 30ML INJ ONE (09:04)
--- NOTE | 2019-04-09 09:37 | NUR ---
*-* INSURANCE *-* ALL AVAILABLE CLINICALS HAVE BEEN FAXED TO: [employer] REF#[id number] NO [employer] SUPERVISOR ASSIGNED YET PH#[phone] [employer] FAX#[phone] REVIEWS/CLINICALS
[2019-04-09] MEDS ORDERED: TransDerm Scop 1.5mg/72HR Patch TDERMAL ONE (09:43)
[2019-04-09] MEDS ORDERED: Zemuron 50mg/5ml Inj IV ONE (09:43)
[2019-04-09] MEDS ORDERED: Succinylcholine 20mg/ml 10ml vial ONE (09:43)
[2019-04-09] MEDS ORDERED: NS Irrig 2000ml IRRIG ONE ×2 (09:53→10:16)
[2019-04-09] MEDS ORDERED: Neostigmine 1mg/ml 10ml Inj ONE (10:00)
[2019-04-09] MEDS ORDERED: Sterile Water Irrig 1000ml IRRIG ONE (10:00)
[2019-04-09] MEDS ORDERED: LR 1000ml ONE (10:00)
--- NOTE | 2019-04-09 10:40 | Anethesia Preoperative Eval ---
Anesthesia Pre-op PMH/ROS General Date of Evaluation: Apr 09, 2019 Time of Evaluation: 09:55 Anesthesiologist: Vickie ASA Score: ASA 2 Mallampati Score Class I : Soft palate, uvula, fauces, pillars visible Class II: Soft palate, uvula, fauces visible Class III: Soft palate, base of uvula visible Class IV: Only hard plate visible Mallampati Classification: Class II Surgeon: Ramesh Diagnosis: Symptomatic cholelithiasis Surgical Procedure: Lap cholecystectomy Anesthesia History: none Family History: no anesthesia problems Allergies: Coded Allergies: No Known Allergies (Unverified , 03/02/19) Patient NPO?: Yes NPO Date: Apr 09, 2019 NPO Time: 0000 Past Medical History Cardiovascular: Denies: HTN, CAD, NV, valve dz, arrhythmia, other Pulmonary: Denies: asthma, COPD, AARON, other Gastrointestinal/Genitourinary: Reports: GERD, other - recurrent abdominal pain ; Denies: CRI, ESRD Neurologic/Psychiatric: Denies: dementia, CVA, depression/anxiety, TIA, other Endocrine: Denies: DM, hypothyroidism, steroids, other HEENT: Denies: cataract (L), cataract (R), glaucoma, UMKUMIUT (L), UMKUMIUT (R), other Hematology/Immune: Denies: anemia, DVT, bleeding disorder, other Musculoskeletal/Integumentary: Denies: OA, RA, DJD, DDD, edema, other Other: obesity PMH Narrative: as above PSxH Narrative: none Anesthesia Pre-op Phys. Exam Physician Exam Last Vital Signs Date Time Temp Pulse Resp B/P (MAP) Pulse Ox O2 Delivery O2 Flow Rate FiO2 04/09/19 08:00 98.6 107 16 130/73 (92) 98 04/08/19 21:00 Room Air Constitutional: NAD Neurologic: CN 2-12 intact Cardiovascular: RRR, no M/R/G Respiratory: CTA Gastrointestinal: other - some tenderness on palpation Airway Exam Mallampati Score: Class II MO: limited Neck: short ROM: full Teeth: intact Dentures: no upper, no lower Anesthesia Pre-op A/P Labs Hematology Test 04/09/19 04:35 White Blood Count 12.9 K/UL (4.8-10.8) H Red Blood Count 3.91 M/UL (4.20-5.40) L Hemoglobin 11.1 G/DL (12.0-16.0) L Hematocrit 34.9 % (37.0-47.0) L Mean Corpuscular Volume 89 FL (80-99) Mean Corpuscular Hemoglobin 28.5 PG (27.0-31.0) Mean Corpuscular Hemoglobin Concent 32.0 G/DL (32.0-36.0) Red Cell Distribution Width 12.8 % (11.6-14.8) Platelet Count 228 K/UL (150-450) Mean Platelet Volume 8.3 FL (6.5-10.1) Neutrophils (%) (Auto) 70.3 % (45.0-75.0) Lymphocytes (%) (Auto) 21.5 % (20.0-45.0) Monocytes (%) (Auto) 6.4 % (1.0-10.0) Eosinophils (%) (Auto) 1.2 % (0.0-3.0) Basophils (%) (Auto) 0.6 % (0.0-2.0) Coagulation Test 04/09/19 04:35 Prothrombin Time 11.2 SEC (9.30-11.50) Prothromb Time International Ratio 1.1 (0.9-1.1) Activated Partial Thromboplast Time 29 SEC (23-33) Chemistry Test 04/09/19 04:35 Sodium Level 142 MMOL/L (136-145) Potassium Level 3.5 MMOL/L (3.5-5.1) Chloride Level 109 MMOL/L (98-107) H Carbon Dioxide Level 21 MMOL/L (21-32) Anion Gap 12 mmol/L (5-15) Blood Urea Nitrogen 11 mg/dL (7-18) Creatinine 0.5 MG/DL (0.55-1.30) L Estimat Glomerular Filtration Rate > 60 mL/min (>60) Glucose Level 72 MG/DL (74-106) L Calcium Level 8.6 MG/DL (8.5-10.1) Total Bilirubin 0.7 MG/DL (0.2-1.0) Aspartate Amino Transf (AST/SGOT) 23 U/L (15-37) Alanine Aminotransferase (ALT/SGPT) 50 U/L (12-78) Alkaline Phosphatase 70 U/L (46-116) Total Protein 7.1 G/DL (6.4-8.2) Albumin 2.8 G/DL (3.4-5.0) L Globulin 4.3 g/dL Albumin/Globulin Ratio 0.7 (1.0-2.7) L Risk Assessment & Plan Assessment: ASA 2 Plan: GA with ETT PONV prevention Status Change Before Surgery: No Pre-Antibiotics Drug: Ancef 1gr. Given Within 1 Hr of Incision: Yes Time Given: 10:15 Rajan Johnston MD Apr 09, 2019 10:40
[2019-04-09] MEDS ORDERED: LR 1000ml 1,000 ML IVLG SCH (10:42)
[2019-04-09] MEDS ORDERED: TransDerm Scop 1.5mg/72HR Patch TDERMAL SCH (10:44)
[2019-04-09] MEDS ORDERED: Morphine Sulfate 10mg/ml Inj ONE (10:45)
[2019-04-09] MEDS ORDERED: Ketorolac 30mg Inj IV PRN (10:45)
[2019-04-09] MEDS ORDERED: Midazolam 2mg/2ml Inj IVP PRN (10:45)
[2019-04-09] MEDS ORDERED: Glycopyrrolate 0.2mg/ml 1ml Vial ONE (10:45)
[2019-04-09] MEDS ORDERED: Sodium Chloride 10ml vial INJ ONE (10:45)
[2019-04-09] MEDS ORDERED: Metoclopramide 10mg/2ml Inj IVP PRN ×3 (10:45→15:00)
[2019-04-09] MEDS ORDERED: Ketorolac 30mg Inj ONE (10:45)
[2019-04-09] MEDS ORDERED: Meperidine 50mg/ml Inj(FOR RIGORS ONLY) IV PRN (10:45)
--- NOTE | 2019-04-09 11:54 | NUR ---
CASE MANAGEMENT: INITIAL REVIEW 28 YO F PRESENTED TO OUR ED FROM HOME CC: ABD PAIN PMHx: GERD. GALLSTONES. OBESITY. SI:CHOLECYSTITIS. T 98.4 HR 102 RR 18 B/P 117/75 SATS 95% ON RA WBC 17.7 CR 0.5 GLU 107 TBILI 1.5 UCx: PENDING IS: NS BOLUS X1 ZOFRAN IV X1 TORADOL IV X1 MORPHINE IV X1 PATIENT ADMITTED TO MED/SURG 04/08/2019 @ 1145 DCP: PATIENT TO BE DISCHARGED TO HOME ONCE MEDICALLY CLEARED. PLAN OF CARE: CONSENT FOR LAP MARILIN Addendum: 04/09/19 at 1621 by Miladys Pereira CM INTERQUAL MET
[2019-04-09 12:04] LABS: FERRITIN 143 NG/ML (8-388)
--- NOTE | 2019-04-09 12:06 | Immediate Post-Op Evaluation ---
Immediate Post-Op Evalulation Immediate Post-Op Evalulation Procedure: Laparoscopic cholecystectomy Date of Evaluation: Apr 09, 2019 Time of Evaluation: 12:05 IV Fluids: 1000 Blood Products: none Estimated Blood Loss: 50 Urinary Output: none Blood Pressure Systolic: 106 Blood Pressure Diastolic: 56 Pulse Rate: 108 Respiratory Rate: 22 O2 Sat by Pulse Oximetry: 99 Temperature (Fahrenheit): 97.8 Pain Score (1-10): 1 Nausea: No Vomiting: No Complications none Patient Status: reacts, patent, extubated, none Hydration Status: adequate Rajan Johnston MD Apr 09, 2019 12:06
[2019-04-09 12:16] LABS: % IRON SATURATION 15 % (15-50); IRON 27 ug/dL (50-175); TOTAL IRON BINDING CAPACITY 182 ug/dL (250-450)
[2019-04-09] MEDS: Morphine Sulfate 2mg/ml Inj(IV/IM USE ONLY) IVP PRN (13:15)
--- NOTE | 2019-04-09 13:34 | NUR ---
NURSE NOTES: Received report from DEEPAK Marquez in PACU. Pt brought to room 315-1 at 1300, pt is awake, talkative, complaining of pain 8/10, RN administered pain medication. Surgical site dressing clean, dry, and intact, pt able to move all extremities, pulses in lower extremities 2+, skin is warm. Pt given clear liquid diet tray, administered IV antibiotics and resumed pre-op IV fluids according to order, vitals obtain and charted, bed in lowest position, call light within reach.
--- NOTE | 2019-04-09 14:49 | Brief Operative Note ---
Immediate Post Operative Note Operative Note Pre-op Diagnosis: acute cholecystitis Procedure: lap debra Post-op Diagnosis: same as pre-op Surgeon: liliam Anesthesiologist: marifer Anesthesia: general, local Specimen: yes Complications: none Condition: stable Fluids: see records Estimated Blood Loss: minimal Drains: none Implant(s) used?: No Luis Miguel Keita Apr 09, 2019 14:49
[2019-04-09] MEDS ORDERED: Morphine Sulfate 2mg/ml Inj(IV/IM USE ONLY) IVP PRN ×2 (15:00)
[2019-04-09] MEDS ORDERED: Milk of Magnesia 30ml Ud ORAL PRN (15:00)
[2019-04-09] MEDS ORDERED: Sennosides 8.6mg tab ORAL PRN (15:00)
[2019-04-09] MEDS: Morphine Sulfate 4mg/ml Inj (IV USE ONLY) IVP PRN ×2 (15:17→19:42)
--- NOTE | 2019-04-09 18:30 | Consultation ---
DATE OF CONSULTATION: 04/09/2019 INFECTIOUS DISEASE CONSULTATION CONSULTING PHYSICIAN: Markus Mayfield M.D. PRIMARY ATTENDING: Wendi Lya M.D. REASON FOR CONSULT: Sepsis, acute cholecystitis. HISTORY OF PRESENT ILLNESS: This 28-year-old female admitted yesterday complaining of right upper quadrant abdominal pain. The patient's pain started 3 days ago. She had another visit to ER on 04/06/2019 because of abdominal pain. She was recently diagnosed with gallstone in the primary doctor office. In hospital, had tachycardia with heart rate of 102 and leukocytosis of 17.7. At home, had low-grade fever of 100. After admission, abdominal ultrasound showed gallstone and was suspected for acute cholecystitis. HIDA scan was positive. Today, the patient went to OR and had laparoscopic cholecystectomy. PAST MEDICAL HISTORY: Insignificant. MEDICATIONS: Getting famotidine, potassium chloride, Zosyn, morphine, Tylenol, Zofran, Benadryl, Mylanta. PAST MEDICAL HISTORY: Cholelithiasis, gastroesophageal reflux disease, obesity. SOCIAL HISTORY: . Denies alcohol, drug abuse, or smoking. PAST SURGICAL HISTORY: None. REVIEW OF SYSTEMS: As per history of present illness. Currently, the pain is controlled. PHYSICAL EXAMINATION: VITAL SIGNS: Temperature 97.8, pulse 109. GENERAL APPEARANCE: No acute distress. Awake, alert, oriented x3. HEAD AND NECK: [place] conjunctivae. HEART: Normal rate. LUNGS: Clear. ABDOMEN: Soft. EXTREMITIES: Has no edema. LABORATORY DATA: WBC today is 12.9, hemoglobin 11.7, hematocrit 34.9, platelets 228. Sodium 142, potassium 3.5, chloride 109, bicarb 21, BUN 11, creatinine is 2.1, glucose 72. UA showed wbc's of 10 to 15, rbc's of 5 to 10, leukocyte esterase 2+, blood 4+. Urine culture is so far negative. IMPRESSION: Sepsis with leukocytosis and tachycardia. Has acute cholecystitis, status post laparoscopic cholecystectomy. Has obesity and has gastroesophageal reflux disease. RECOMMENDATION: Continue Zosyn. We will follow up the operative report. At the end of my exam, I thank Dr. Lay for involving me in the care of this patient. Markus Mayfield M.D. DR: KRISTINE JOB#: [id number] CC: KYRA
--- NOTE | 2019-04-09 18:30 | NUR ---
NURSE NOTES: Patient reported one episode of emesis, was given Zofran PRN and reports relief. Diet not advanced due to emesis. Also informed Dr. Lay and Dr. Keita that patient had low grade fever earlier. Will continue to monitor.
--- NOTE | 2019-04-09 18:45 | Operative Note - Dictated ---
DATE OF OPERATION: 04/09/2019 PREOPERATIVE DIAGNOSIS: Acute cholecystitis. POSTOPERATIVE DIAGNOSIS: Acute cholecystitis. OPERATION PERFORMED: 1. Laparoscopic cholecystectomy. 2. Drainage of intra-abdominal peritoneal cyst from the gallbladder. ATTENDING SURGEON: Luis Miguel Keita M.D. BATCH DUMPER: None. ANESTHESIOLOGISTS: Rajan Johnston M.D. ANESTHESIA: General GETA. ESTIMATED BLOOD LOSS: Minimal. IV FLUIDS: Please see anesthesia records. COMPLICATIONS: None. DRAINS: None. COUNTS: Sponge and needle count correct x2. WOUND CLASSIFICATION: Class III. ANTIBIOTICS: The patient on scheduled IV antibiotics for acute inflammatory process. SPECIMENS: Gallbladder and contained stones sent to pathology for review. INDICATIONS FOR PROCEDURE: This is a 28-year-old female presented to emergency department at [facility] complaining of worsening right upper quadrant abdominal pain associated with nausea and emesis. The patient had a leukocytosis and ultrasound identifying a gallbladder wall thickness and consistent with acute cholecystitis. The patient had a HIDA scan identifying cystic duct obstruction. Surgery was indicated and recommended. Of note, the patient has had multiple prior incidents with similar events and required emergency department visits. Given these findings, surgery was discussed with the patient and risks, benefits, and alternatives were discussed in detail. The patient expressed understanding and consented to surgery. OPERATIVE NOTE: The patient taken to the operating room and placed on the operating table in supine position with bilateral arms out. All bony prominences were well padded. SCDs were placed. Preoperative time-out taken in identifying the patient, procedure, operative staff, and surgical staff. The patient already on scheduled IV antibiotics prior to entering the operating room. General anesthesia was induced and the patient was intubated. The abdomen was clipped, prepped, draped in standard surgical fashion. An infraumbilical incision was made, carried down to the fascia, which was elevated and incised. Entry into the abdomen was obtained using open Karmen technique without complication. A 12 mm Karmen trocar was inserted under direct visualization and the abdomen was insufflated to 12 to 15 mmHg. The patient tolerated the insufflation well. Laparoscope was inserted and the abdomen was inspected. No injury from initial trocar incision noted. The patient was placed in reverse Trendelenburg with left side down. Secondary trocars placed under direct visualization beginning with a subxiphoid 12 mm and two 5 mm right subcostal ports. Local anesthetic was infiltrated in the skin incisions and port sites throughout the procedure for patient's comfort. The omental adhesions to the gallbladder were slowly dissected down using blunt dissection. The gallbladder was identified to be distended, thickened, and significantly abnormal. The gallbladder was unable to be grasped given how thickened and distended it was and cystic appearing. Identifiable hydrops was noted. Laparoscopic needle was then used and the gallbladder was drained of its cystic fluid collection and hydrops identified. Following this, the dome of the gallbladder was grasped and retracted over the liver. The infundibulum was identified. Multiple stones palpated especially one identified being dislodged in the infundibulum neck at the cystic duct. The peritoneal lining of the gallbladder was incised and gently dissected down and the cystic artery and duct were clearly identified and circumferentially dissected out. The critical view was obtained and following this, the cystic artery was doubly clipped and divided. The only remaining structure entering the gallbladder was the cystic duct. Cystic duct was doubly clipped and divided. The gallbladder was then taken off its liver attachments using electrocautery. Gallbladder was placed in endoscopic retrieval bag and removed from the abdomen using subxiphoid port. The abdomen was irrigated and suctioned clear. Hemostasis obtained from the liver bed fossa with electrocautery. The clips on the cystic duct and artery were identified and noted to be intact. No bleeding or oozing of bile. A Surgicel was placed in the liver bed. The patient tolerated the procedure well. Secondary trocars were removed under direct visualization and the abdomen was desufflated. The umbilical trocar site and subxiphoid trocar site fascia reapproximated using #0 [id number] Vicryl sutures. Skin incisions were cleansed and reapproximated using 4-0 Monocryl subcuticular interrupted sutures. Steri-Strips and benzoin followed by dressings were applied. The patient tolerated the procedure well, was extubated, and taken to postanesthetic care unit in stable condition. Luis Miguel Keita M.D. DR: Lashawn JOB#: [id number] CC: KYRA
--- NOTE | 2019-04-09 19:00 | NUR ---
HAND-OFF: Report given to Remington SOTELO. Patient is in stable condition.
--- NOTE | 2019-04-09 19:30 | NUR ---
NURSE NOTES: Received report from DEEPAK Rankin and rounds made with outgoing nurse. Received pt lying in bed, AOX4, denies pain at this time, no distress noted. Surgical dressing with 4 lapsites, C/D/I with stained. Bed in lowest position and locked, side rails up x 2, call light within reach. Will continue to monitor.
--- NOTE | 2019-04-09 21:30 | NUR ---
NURSE NOTES: Ambulating in the hallway with , gait steady, pt states "I'm burping". Encouraged pt to ambulate as tolerated. Verbalized understanding. Will continue to monitor.
[2019-04-10] VITALS: BP 112/68
--- NOTE | 2019-04-10 00:15 | History and Physical Report ---
DATE OF ADMISSION: 04/08/2019 HISTORY OF PRESENT ILLNESS: The patient is coming and being admitted for acute cholecystitis, presented with abdominal pain for two weeks that got worse in the past couple of days and it is mostly worse on the right upper quadrant, also vomiting. She also has history of GERD and the patient has history of gallstones and dilated common bile duct and thickened gallbladder. The patient admitted for acute cholecystitis. PAST MEDICAL HISTORY: GERD. PAST SURGICAL HISTORY: None. MEDICATIONS: Takes basically famotidine. FAMILY HISTORY: Noncontributory. SOCIAL HISTORY: Denies smoking, alcohol, or illicit drugs. REVIEW OF SYSTEMS: HEENT: Denies headaches. RESPIRATORY: Denies shortness of breath. Denies cough. CARDIOVASCULAR: Denies chest pain. Denies orthopnea. GASTROINTESTINAL: Reports right upper quadrant tenderness and vomiting for the past two weeks and heartburn. CENTRAL NERVOUS SYSTEM: No change in speech pattern. PHYSICAL EXAMINATION: VITAL SIGNS: Temperature is 97.8, pulse is 109, blood pressure 111/56. HEENT: PERRLA. NECK: Supple. No lymphadenopathy. CHEST: Clear to auscultation. CARDIOVASCULAR: Tachycardic. GASTROINTESTINAL: Right upper quadrant tenderness. No rebound. Abdomen is soft. EXTREMITIES: No edema. Moves all four extremities. NEUROLOGIC: Sensory intact to light touch. Reflexes on both sides. Moves all four extremities. LABORATORY DATA: WBC of 17.7, hemoglobin 12.9, platelets 250,000. Sodium 140, potassium 3.5, BUN of 11, creatinine 0.5, glucose of 107. ASSESSMENT AND PLAN: 1. Acute cholecystitis. 2. Abdominal pain and vomiting. I have asked Dr. Markus Mayfield, Dr. Lu, Dr. Keita, and Dr. Cast to see the patient for hypokalemia as well as for the management of acute cholecystitis and possible cholecystectomy. Wendi Lay M.D. DR: SHANNAN JOB#: [id number] CC:
[2019-04-10] MEDS: Morphine Sulfate 4mg/ml Inj (IV USE ONLY) IVP PRN ×3 (02:31→10:25)
[2019-04-10 04:00] VITALS: BP 107/71
[2019-04-10 05:48] LABS: BASOPHILS % (AUTO) 0.9 % (0.0-2.0); EOSINOPHILS % (AUTO) 0.2 % (0.0-3.0); HEMATOCRIT 34.2 % (37.0-47.0); HEMOGLOBIN 10.9 G/DL (12.0-16.0); LYMPHOCYTES % (AUTO) 14.2 % (20.0-45.0); MEAN CORPUSCULAR VOLUME 89 FL (80-99); NEUTROPHILS % (AUTO) 78.7 % (45.0-75.0); PLATELET COUNT 268 K/UL (150-450); RED BLOOD COUNT 3.84 M/UL (4.20-5.40); RED CELL DISTRIBUTION WIDTH 12.8 % (11.6-14.8); WHITE BLOOD COUNT 13.5 K/UL (4.8-10.8)
[2019-04-10] MEDS: Piperacillin/Tazobactam 3.375 GM in NS 110 ML IVPB SCH ×3 (05:53→21:38)
[2019-04-10 06:34] LABS: ALANINE AMINOTRANSFERASE 81 U/L (12-78); ALBUMIN 2.6 G/DL (3.4-5.0); ALBUMIN/GLOBULIN RATIO 0.6 (1.0-2.7); ALKALINE PHOSPHATASE 69 U/L (46-116); ANION GAP 11 mmol/L (5-15); ASPARTATE AMINO TRANSFERASE 72 U/L (15-37); BILIRUBIN,TOTAL 0.7 MG/DL (0.2-1.0); BLOOD UREA NITROGEN 6 mg/dL (7-18); CALCIUM 8.6 MG/DL (8.5-10.1); CARBON DIOXIDE 21 MMOL/L (21-32); CHLORIDE 105 MMOL/L (98-107); CREATININE 0.5 MG/DL (0.55-1.30); POTASSIUM 3.6 MMOL/L (3.5-5.1); SODIUM 137 MMOL/L (136-145)
--- NOTE | 2019-04-10 07:30 | NUR ---
HAND-OFF: Report given to DEEPAK Art. Pt in stable condition.
--- NOTE | 2019-04-10 07:40 | NUR ---
NURSE NOTES: Received report from DEEPAK Macedo. Rounding done with outgoing nurse. Pt a/o x4, in bed. No respiratory distress noted. c/o abdominal surgical site pain as 02/19. Pain medicine will be given as MD ordered. Mother and at bedside. Bed in lowest position, call light within reach. Will continue to monitor.
[2019-04-10 08:00] VITALS: BP 123/76
--- NOTE | 2019-04-10 08:14 | NUR ---
CASE MANAGEMENT: REVIEW 04/10/2019 SI:CHOLECYSTITIS. T 99.9 HR 90 RR 16 B/P 109/57 SATS 98% ON RA WBC 13.5 BUN 6 CR 0.5 AST 72 ALT 81 IS: ZOSYN IV Q8H PEPCID IV Q12H MED/SURG STATUS DCP: PATIENT TO BE DISCHARGED TO HOME ONCE MEDICALLY CLEARED. PLAN OF CARE: DATE OF OPERATION: 04/09/2019 PREOPERATIVE DIAGNOSIS: Acute cholecystitis. POSTOPERATIVE DIAGNOSIS: Acute cholecystitis. OPERATION PERFORMED: 1. Laparoscopic cholecystectomy. 2. Drainage of intra-abdominal peritoneal cyst from the gallbladder.
--- NOTE | 2019-04-10 08:38 | NUR ---
P.T Note: P.T evaluation complete S/P Lap Arianne. Pt is alert, O x 4 , pleasant and cooperative. Pt reports c/o 4-5/10 in the abdominal area aggravated by movement, sneezing/coughing. Pt educated on proper breathing tech and use of core muscle group and other compensatory movement tech to minimize pain symptoms. Pt also educated and encouraged on OOB activities VS bedrest following surgical procedure. Pt verbalized understanding. Pt is currently functioning independently at baseline. No further skilled P.T service follow up. DC P.T services.
--- NOTE | 2019-04-10 09:01 | 48 Hour Post Anesthesia Eval ---
Post Anesthesia Evaluation Procedure: Laparoscopic cholecystectomy Date of Evaluation: Apr 10, 2019 Time of Evaluation: 08:59 Blood Pressure Systolic: 118 0: 72 Pulse Rate: 98 Respiratory Rate: 20 Temperature (Fahrenheit): 97.8 O2 Sat by Pulse Oximetry: 98 Airway: patent Nausea: No Vomiting: No Pain Intensity: 3 Hydration Status: adequate Cardiopulmonary Status: stable Mental Status/LOC: patient returned to baseline Follow-up Care/Observations: n/a Post-Anesthesia Complications: none Follow-up care needed: N/A Rajan Johnston MD Apr 10, 2019 09:01
--- NOTE | 2019-04-10 09:42 | NUR ---
RD ASSESSMENT & RECOMMENDATIONS SEE CARE ACTIVITY FOR COMPLETE ASSESSMENT DAILY ESTIMATED NEEDS: Needs based on Surgery 54.9kg adj 25-30 kcals/kg 6619-9733 total kcals 1-2 g protein/kg 55-110 g total protein 25-30 mL/kg 2510-7094 total fluid mLs NUTRITION DIAGNOSIS: Decreased fat needs r/t acute cholecystitis as evidenced by HIDA scan, pt now s/p lap debra. CURRENT DIET: now Regular PO DIET RECOMMENDATIONS: --> advance to LOW FAT diet ADDITIONAL RECOMMENDATIONS: 1) Obtain a standing scale as able 2) Monitor LFT's 3) Diet edu provided for lap debra
--- NOTE | 2019-04-10 10:36 | NUR ---
NURSE NOTES: Pt. reported pain 8/10 4mg morphine removed and given when counting the medication counted wrong as 20 suppose to be 19 and discrepancy resolved with Isa Art RN.
--- NOTE | 2019-04-10 11:21 | Hematology/Onc Progress Note ---
Assessment/Plan Assessment/Plan Assessment and Recs # Anemia due to folic acid deficiency with low folate --> replete with folic acid 1mg po daily has been started --> trend hgb 111-->10.9 --> she has been improving s/p surgery, recovering --> meds have been reviewed --> anemia panel shows acd # Lab abnormalities with elevated fibrinogen 883 --> likely a reactive process --> at this time, has no evidence of DIC # Leukocytosis due to initial sepsis/tachycardia as well, can be related to surg --> s/p lap choly --> per gi is on zosyn, continue # Obesity # GERD --> PPi as per gi # DVT ppx with ambulation -> add lovenox tomorrow if patient still here The timing of this note does not necessarily reflect the time of the patient was seen. GREATLY APPRECIATE CONSULTATION. Subjective Allergies: Coded Allergies: No Known Allergies (Unverified , 03/02/19) Subjective 04/10: vs stable, s/p surgery, passing gas Objective Objective Current Medications Medications (Trade) Dose Ordered Sig/Marnie Route PRN Reason Start Time Stop Time Status Last Admin Dose Admin Acetaminophen (Tylenol) 650 mg Q4H PRN ORAL fever 04/08/19 13:30 05/08/19 13:29 Al Hydroxide/Mg Hydroxide (Mylanta) 15 ml Q6H PRN ORAL DYSPEPSIA 04/09/19 15:00 05/09/19 14:59 Dextrose (Dextrose 50%) 25 ml Q30M PRN IV Hypoglycemia 04/08/19 13:30 05/08/19 13:29 Dextrose (Dextrose 50%) 50 ml Q30M PRN IV Hypoglycemia 04/08/19 13:30 05/08/19 13:29 Diphenhydramine HCl (Benadryl) 25 mg Q8H PRN ORAL Itching/Pruritis 04/09/19 15:00 05/09/19 14:59 Famotidine (Pepcid I.v.) 20 mg Q12HR IVP 04/08/19 21:00 05/08/19 20:59 04/10/19 08:46 Magnesium Hydroxide (Mom) 30 ml BIDPRN PRN ORAL Constipation 04/09/19 15:00 05/09/19 14:59 Metoclopramide HCl (Reglan) 10 mg Q6H PRN IVP Nausea & Vomiting 04/09/19 15:00 05/09/19 14:59 Morphine Sulfate (Morphine Sulfate) 1 mg Q4H PRN IVP pain scale 1-3 04/09/19 15:00 04/16/19 14:59 Morphine Sulfate (Morphine Sulfate) 2 mg Q4H PRN IVP pain scale 4-6 04/09/19 15:00 04/16/19 14:59 Morphine Sulfate (Morphine Sulfate) 4 mg Q4H PRN IVP pain score 7-10 04/09/19 15:00 04/16/19 14:59 04/10/19 10:25 Ondansetron HCl (Zofran) 4 mg Q6H PRN IVP Nausea & Vomiting 04/08/19 13:30 05/08/19 13:29 04/09/19 17:59 Piperacillin Sod/ Tazobactam Sod 3.375 gm/Sodium Chloride 110 ml @ 27.5 mls/hr EVERY 8 HOURS IVPB 04/08/19 15:00 04/13/19 14:59 04/10/19 05:53 Sennosides (Senokot) 8.6 mg BIDPRN PRN ORAL Constipation 04/09/19 15:00 05/09/19 14:59 Last 24 Hour Vital Signs Date Time Temp Pulse Resp B/P (MAP) Pulse Ox O2 Delivery O2 Flow Rate FiO2 04/10/19 09:01 98 20 98 04/10/19 09:00 Room Air 04/10/19 08:00 98.4 104 17 123/76 (92) 100 04/10/19 04:00 99.1 105 20 107/71 (83) 97 04/10/19 00:00 99.8 103 18 112/68 (83) 98 04/09/19 21:00 Room Air 04/09/19 20:00 98.7 106 18 124/74 (91) 96 04/09/19 16:15 99.9 90 16 109/57 (74) 98 04/09/19 15:15 98.1 105 17 115/67 (83) 96 04/09/19 14:15 98.8 104 18 112/65 (81) 99 04/09/19 13:45 100.0 103 19 112/65 (81) 98 04/09/19 13:15 99.0 105 20 111/67 (82) 96 04/09/19 12:55 97.8 109 18 111/56 99 Nasal Cannula 3 04/09/19 12:45 104 16 108/55 99 Nasal Cannula 3 04/09/19 12:40 114 17 114/56 98 Nasal Cannula 3 04/09/19 12:30 111 18 125/56 100 Nasal Cannula 3 04/09/19 12:20 115 20 117/59 100 Nasal Cannula 3 04/09/19 12:10 118 21 111/55 100 Simple Mask 6 04/09/19 12:06 108 22 99 04/09/19 12:05 116 22 114/53 100 Simple Mask 6 04/09/19 12:03 98.8 106 20 102/49 100 Simple Mask 6 04/09/19 09:00 Room Air 04/09/19 08:00 98.6 107 16 130/73 (92) 98 04/09/19 04:00 97.9 103 18 123/67 (85) 96 04/08/19 23:43 97.9 99 18 110/58 (75) 97 04/08/19 21:00 Room Air 04/08/19 20:00 99.6 98 17 132/75 (94) 99 04/08/19 16:00 98.1 110 18 126/77 (93) 96 04/08/19 14:12 Room Air 04/08/19 14:00 98.4 108 20 114/63 (80) 98 04/08/19 13:52 98.5 79 19 118/72 100 Room Air 04/08/19 13:40 98.7 82 16 122/75 96 Room Air 04/08/19 13:23 98.7 04/08/19 11:30 98.5 89 18 115/70 100 Room Air Intake and Output 04/09/19 04/10/19 19:00 07:00 Intake Total 2765.0 ml 337.5 ml Output Total 20 ml Balance 2745.0 ml 337.5 ml Intake Oral 1200 ml 200 ml IV Total 1565.0 ml 137.5 ml Estimated Blood Loss 20 ml # Voids 1 3 Labs Test 04/08/19 06:35 04/09/19 04:35 04/09/19 18:20 04/10/19 05:20 White Blood Count 17.7 K/UL (4.8-10.8) 12.9 K/UL (4.8-10.8) 13.5 K/UL (4.8-10.8) Red Blood Count 4.46 M/UL (4.20-5.40) 3.91 M/UL (4.20-5.40) 3.84 M/UL (4.20-5.40) Hemoglobin 12.9 G/DL (12.0-16.0) 11.1 G/DL (12.0-16.0) 10.9 G/DL (12.0-16.0) Hematocrit 39.2 % (37.0-47.0) 34.9 % (37.0-47.0) 34.2 % (37.0-47.0) Mean Corpuscular Volume 88 FL (80-99) 89 FL (80-99) 89 FL (80-99) Mean Corpuscular Hemoglobin 28.8 PG (27.0-31.0) 28.5 PG (27.0-31.0) 28.5 PG (27.0-31.0) Mean Corpuscular Hemoglobin Concent 32.8 G/DL (32.0-36.0) 32.0 G/DL (32.0-36.0) 32.0 G/DL (32.0-36.0) Red Cell Distribution Width 12.8 % (11.6-14.8) 12.8 % (11.6-14.8) 12.8 % (11.6-14.8) Platelet Count 250 K/UL (150-450) 228 K/UL (150-450) 268 K/UL (150-450) Mean Platelet Volume 9.0 FL (6.5-10.1) 8.3 FL (6.5-10.1) 7.8 FL (6.5-10.1) Neutrophils (%) (Auto) 76.9 % (45.0-75.0) 70.3 % (45.0-75.0) 78.7 % (45.0-75.0) Lymphocytes (%) (Auto) 14.9 % (20.0-45.0) 21.5 % (20.0-45.0) 14.2 % (20.0-45.0) Monocytes (%) (Auto) 6.8 % (1.0-10.0) 6.4 % (1.0-10.0) 6.0 % (1.0-10.0) Eosinophils (%) (Auto) 0.7 % (0.0-3.0) 1.2 % (0.0-3.0) 0.2 % (0.0-3.0) Basophils (%) (Auto) 0.7 % (0.0-2.0) 0.6 % (0.0-2.0) 0.9 % (0.0-2.0) Urine Color Yellow Urine Appearance Clear Urine pH 6 (4.5-8.0) Urine Specific [place] 1.020 (1.005-1.035) Urine Protein 2+ (NEGATIVE) Urine Glucose (UA) Negative (NEGATIVE) Urine Ketones 4+ (NEGATIVE) Urine Blood 4+ (NEGATIVE) Urine Nitrite Negative (NEGATIVE) Urine Bilirubin Negative (NEGATIVE) Urine Urobilinogen 1 MG/DL (0.0-1.0) Urine Leukocyte Esterase 3+ (NEGATIVE) Urine RBC 5-10 /HPF (0 - 2) Urine WBC 10-15 /HPF (0 - 2) Urine Squamous Epithelial Cells Few /LPF (NONE/OCC) Urine Bacteria Few /HPF (NONE) Urine Mucus Few /LPF (NONE/OCC) Urine HCG, Qualitative Negative (NEGATIVE) Sodium Level 140 MMOL/L (136-145) 142 MMOL/L (136-145) 137 MMOL/L (136-145) Potassium Level 3.5 MMOL/L (3.5-5.1) 3.5 MMOL/L (3.5-5.1) 3.6 MMOL/L (3.5-5.1) Chloride Level 103 MMOL/L (98-107) 109 MMOL/L (98-107) 105 MMOL/L (98-107) Carbon Dioxide Level 24 MMOL/L (21-32) 21 MMOL/L (21-32) 21 MMOL/L (21-32) Anion Gap 13 mmol/L (5-15) 12 mmol/L (5-15) 11 mmol/L (5-15) Blood Urea Nitrogen 11 mg/dL (7-18) 11 mg/dL (7-18) 6 mg/dL (7-18) Creatinine 0.5 MG/DL (0.55-1.30) 0.5 MG/DL (0.55-1.30) 0.5 MG/DL (0.55-1.30) Estimat Glomerular Filtration Rate > 60 mL/min (>60) > 60 mL/min (>60) > 60 mL/min (>60) Glucose Level 107 MG/DL (74-106) 72 MG/DL (74-106) 85 MG/DL (74-106) Calcium Level 9.2 MG/DL (8.5-10.1) 8.6 MG/DL (8.5-10.1) 8.6 MG/DL (8.5-10.1) Total Bilirubin 1.2 MG/DL (0.2-1.0) 0.7 MG/DL (0.2-1.0) 0.7 MG/DL (0.2-1.0) Direct Bilirubin 0.3 MG/DL (0.0-0.3) Aspartate Amino Transf (AST/SGOT) 23 U/L (15-37) 23 U/L (15-37) 72 U/L (15-37) Alanine Aminotransferase (ALT/SGPT) 58 U/L (12-78) 50 U/L (12-78) 81 U/L (12-78) Alkaline Phosphatase 58 U/L (46-116) 70 U/L (46-116) 69 U/L (46-116) Total Protein 8.3 G/DL (6.4-8.2) 7.1 G/DL (6.4-8.2) 7.2 G/DL (6.4-8.2) Albumin 3.4 G/DL (3.4-5.0) 2.8 G/DL (3.4-5.0) 2.6 G/DL (3.4-5.0) Globulin 4.9 g/dL 4.3 g/dL 4.6 g/dL Albumin/Globulin Ratio 0.7 (1.0-2.7) 0.7 (1.0-2.7) 0.6 (1.0-2.7) Lipase 76 U/L (73-393) Differential Total Cells Counted 100 Neutrophils % (Manual) 67 % (45-75) Lymphocytes % (Manual) 21 % (20-45) Monocytes % (Manual) 11 % (1-10) Eosinophils % (Manual) 1 % (0-3) Basophils % (Manual) 0 % (0-2) Band Neutrophils 0 % (0-8) Platelet Estimate Adequate Platelet Morphology Normal Reticulocyte Count 1.3 % (0.5-2.0) Prothrombin Time 11.2 SEC (9.30-11.50) Prothromb Time International Ratio 1.1 (0.9-1.1) Activated Partial Thromboplast Time 29 SEC (23-33) Iron Level 27 ug/dL (50-175) Total Iron Binding Capacity 182 ug/dL (250-450) Percent Iron Saturation 15 % (15-50) Unsaturated Iron Binding 155 ug/dL (112-346) Ferritin 143 NG/ML (8-388) Folate 8.5 NG/ML (8.6-58.9) Fibrinogen 883 mg/dL (200-400) Height (Feet): 5 Height (Inches): 1.00 Weight (Pounds): 168 Objective Physical Exam: Vitals: reviewed General Appearance: NAD HEENT: normocephalic, atraumatic Neck: non-tender, normal alignment Respiratory/Chest: normal breath sounds bilaterally Cardiovascular/Chest: normal peripheral pulses, normal rate Abdomen: normal bowel sounds, soft, nontender ++ surg sites noted Extremities: normal range of motion Jose Goldberg MD Apr 10, 2019 11:21
--- NOTE | 2019-04-10 11:45 | Infectious Diseases Prog Note ---
Assessment/Plan Assessment/Plan IMPRESSION: Sepsis with leukocytosis and tachycardia. Acute cholecystitis, status post laparoscopic cholecystectomy. Obesity and Gastroesophageal reflux disease. Peritoneal cyst RECOMMENDATION: Continue Zosyn Subjective ROS Limited/Unobtainable: No Constitutional: Reports: fever, other - low grade Respiratory: Reports: no symptoms Gastrointestinal/Abdominal: Reports: no symptoms, other - mild pain with deep breathing Genitourinary: Reports: no symptoms Allergies: Coded Allergies: No Known Allergies (Unverified , 03/02/19) Objective Vital Signs Last 24 Hour Vital Signs Date Time Temp Pulse Resp B/P (MAP) Pulse Ox O2 Delivery O2 Flow Rate FiO2 04/10/19 09:01 98 20 98 04/10/19 09:00 Room Air 04/10/19 08:00 98.4 104 17 123/76 (92) 100 04/10/19 04:00 99.1 105 20 107/71 (83) 97 04/10/19 00:00 99.8 103 18 112/68 (83) 98 04/09/19 21:00 Room Air 04/09/19 20:00 98.7 106 18 124/74 (91) 96 04/09/19 16:15 99.9 90 16 109/57 (74) 98 04/09/19 15:15 98.1 105 17 115/67 (83) 96 04/09/19 14:15 98.8 104 18 112/65 (81) 99 04/09/19 13:45 100.0 103 19 112/65 (81) 98 04/09/19 13:15 99.0 105 20 111/67 (82) 96 04/09/19 12:55 97.8 109 18 111/56 99 Nasal Cannula 3 04/09/19 12:45 104 16 108/55 99 Nasal Cannula 3 04/09/19 12:40 114 17 114/56 98 Nasal Cannula 3 04/09/19 12:30 111 18 125/56 100 Nasal Cannula 3 04/09/19 12:20 115 20 117/59 100 Nasal Cannula 3 04/09/19 12:10 118 21 111/55 100 Simple Mask 6 04/09/19 12:06 108 22 99 04/09/19 12:05 116 22 114/53 100 Simple Mask 6 04/09/19 12:03 98.8 106 20 102/49 100 Simple Mask 6 Height (Feet): 5 Height (Inches): 1.00 Weight (Pounds): 168 General Appearance: no acute distress HEENT: mucous membranes moist Respiratory/Chest: lungs clear Cardiovascular: normal rate Abdomen: soft, non tender Extremities: no edema Neurologic/Psychiatric: alert, oriented x 3, responsive Microbiology Date/Time Source Procedure Growth Status 04/08/19 06:35 Urine,Clean Catch Urine Culture - Final Mixed Gram Positive Organism Complete Laboratory Tests Test 04/09/19 18:20 04/10/19 05:20 Fibrinogen 883 mg/dL (200-400) H White Blood Count 13.5 K/UL (4.8-10.8) H Red Blood Count 3.84 M/UL (4.20-5.40) L Hemoglobin 10.9 G/DL (12.0-16.0) L Hematocrit 34.2 % (37.0-47.0) L Mean Corpuscular Volume 89 FL (80-99) Mean Corpuscular Hemoglobin 28.5 PG (27.0-31.0) Mean Corpuscular Hemoglobin Concent 32.0 G/DL (32.0-36.0) Red Cell Distribution Width 12.8 % (11.6-14.8) Platelet Count 268 K/UL (150-450) Mean Platelet Volume 7.8 FL (6.5-10.1) Neutrophils (%) (Auto) 78.7 % (45.0-75.0) H Lymphocytes (%) (Auto) 14.2 % (20.0-45.0) L Monocytes (%) (Auto) 6.0 % (1.0-10.0) Eosinophils (%) (Auto) 0.2 % (0.0-3.0) Basophils (%) (Auto) 0.9 % (0.0-2.0) Sodium Level 137 MMOL/L (136-145) Potassium Level 3.6 MMOL/L (3.5-5.1) Chloride Level 105 MMOL/L (98-107) Carbon Dioxide Level 21 MMOL/L (21-32) Anion Gap 11 mmol/L (5-15) Blood Urea Nitrogen 6 mg/dL (7-18) L Creatinine 0.5 MG/DL (0.55-1.30) L Estimat Glomerular Filtration Rate > 60 mL/min (>60) Glucose Level 85 MG/DL (74-106) Calcium Level 8.6 MG/DL (8.5-10.1) Total Bilirubin 0.7 MG/DL (0.2-1.0) Aspartate Amino Transf (AST/SGOT) 72 U/L (15-37) H Alanine Aminotransferase (ALT/SGPT) 81 U/L (12-78) H Alkaline Phosphatase 69 U/L (46-116) Total Protein 7.2 G/DL (6.4-8.2) Albumin 2.6 G/DL (3.4-5.0) L Globulin 4.6 g/dL Albumin/Globulin Ratio 0.6 (1.0-2.7) L Current Medications Medications (Trade) Dose Ordered Sig/Marnie Route PRN Reason Start Time Stop Time Status Last Admin Dose Admin Acetaminophen (Tylenol) 650 mg Q4H PRN ORAL fever 04/08/19 13:30 05/08/19 13:29 Al Hydroxide/Mg Hydroxide (Mylanta) 15 ml Q6H PRN ORAL DYSPEPSIA 04/09/19 15:00 05/09/19 14:59 Dextrose (Dextrose 50%) 25 ml Q30M PRN IV Hypoglycemia 04/08/19 13:30 05/08/19 13:29 Dextrose (Dextrose 50%) 50 ml Q30M PRN IV Hypoglycemia 04/08/19 13:30 05/08/19 13:29 Diphenhydramine HCl (Benadryl) 25 mg Q8H PRN ORAL Itching/Pruritis 04/09/19 15:00 05/09/19 14:59 Famotidine (Pepcid I.v.) 20 mg Q12HR IVP 04/08/19 21:00 05/08/19 20:59 04/10/19 08:46 Folic Acid (Folate) 1 mg DAILY ORAL 04/11/19 09:00 05/11/19 08:59 UNV Magnesium Hydroxide (Mom) 30 ml BIDPRN PRN ORAL Constipation 04/09/19 15:00 05/09/19 14:59 Metoclopramide HCl (Reglan) 10 mg Q6H PRN IVP Nausea & Vomiting 04/09/19 15:00 05/09/19 14:59 Morphine Sulfate (Morphine Sulfate) 1 mg Q4H PRN IVP pain scale 1-3 04/09/19 15:00 04/16/19 14:59 Morphine Sulfate (Morphine Sulfate) 2 mg Q4H PRN IVP pain scale 4-6 04/09/19 15:00 04/16/19 14:59 Morphine Sulfate (Morphine Sulfate) 4 mg Q4H PRN IVP pain score 7-10 04/09/19 15:00 04/16/19 14:59 04/10/19 10:25 Ondansetron HCl (Zofran) 4 mg Q6H PRN IVP Nausea & Vomiting 04/08/19 13:30 05/08/19 13:29 04/09/19 17:59 Piperacillin Sod/ Tazobactam Sod 3.375 gm/Sodium Chloride 110 ml @ 27.5 mls/hr EVERY 8 HOURS IVPB 04/08/19 15:00 04/13/19 14:59 04/10/19 05:53 Sennosides (Senokot) 8.6 mg BIDPRN PRN ORAL Constipation 04/09/19 15:00 05/09/19 14:59 Markus Mayfield MD Apr 10, 2019 11:45
[2019-04-10 12:00] VITALS: BP 121/68
--- NOTE | 2019-04-10 12:21 | Surgery Progress Note ---
Surgery Progress Note Subjective Procedure Performed lap debra Additional Comments doing well post op comfortable incisional pain no n/v/f/c tolerating diet ambulatory labs noted Objective Last 24 Hour Vital Signs Date Time Temp Pulse Resp B/P (MAP) Pulse Ox O2 Delivery O2 Flow Rate FiO2 04/10/19 12:00 100.4 97 18 121/68 (85) 95 04/10/19 09:01 98 20 98 04/10/19 09:00 Room Air 04/10/19 08:00 98.4 104 17 123/76 (92) 100 04/10/19 04:00 99.1 105 20 107/71 (83) 97 04/10/19 00:00 99.8 103 18 112/68 (83) 98 04/09/19 21:00 Room Air 04/09/19 20:00 98.7 106 18 124/74 (91) 96 04/09/19 16:15 99.9 90 16 109/57 (74) 98 04/09/19 15:15 98.1 105 17 115/67 (83) 96 04/09/19 14:15 98.8 104 18 112/65 (81) 99 04/09/19 13:45 100.0 103 19 112/65 (81) 98 04/09/19 13:15 99.0 105 20 111/67 (82) 96 04/09/19 12:55 97.8 109 18 111/56 99 Nasal Cannula 3 04/09/19 12:45 104 16 108/55 99 Nasal Cannula 3 04/09/19 12:40 114 17 114/56 98 Nasal Cannula 3 04/09/19 12:30 111 18 125/56 100 Nasal Cannula 3 04/09/19 12:20 115 20 117/59 100 Nasal Cannula 3 I&O Intake and Output 04/09/19 04/10/19 19:00 07:00 Intake Total 2765.0 ml 337.5 ml Output Total 20 ml Balance 2745.0 ml 337.5 ml Intake Oral 1200 ml 200 ml IV Total 1565.0 ml 137.5 ml Estimated Blood Loss 20 ml # Voids 1 3 Dressing: dry Wound: clean Cardiovascular: RSR Respiratory: clear Abdomen: soft, flat, non-tender, present bowel sounds, non-distended Extremities: no tenderness, no cyanosis Laboratory Tests Test 04/09/19 18:20 04/10/19 05:20 Fibrinogen 883 mg/dL (200-400) H White Blood Count 13.5 K/UL (4.8-10.8) H Red Blood Count 3.84 M/UL (4.20-5.40) L Hemoglobin 10.9 G/DL (12.0-16.0) L Hematocrit 34.2 % (37.0-47.0) L Mean Corpuscular Volume 89 FL (80-99) Mean Corpuscular Hemoglobin 28.5 PG (27.0-31.0) Mean Corpuscular Hemoglobin Concent 32.0 G/DL (32.0-36.0) Red Cell Distribution Width 12.8 % (11.6-14.8) Platelet Count 268 K/UL (150-450) Mean Platelet Volume 7.8 FL (6.5-10.1) Neutrophils (%) (Auto) 78.7 % (45.0-75.0) H Lymphocytes (%) (Auto) 14.2 % (20.0-45.0) L Monocytes (%) (Auto) 6.0 % (1.0-10.0) Eosinophils (%) (Auto) 0.2 % (0.0-3.0) Basophils (%) (Auto) 0.9 % (0.0-2.0) Sodium Level 137 MMOL/L (136-145) Potassium Level 3.6 MMOL/L (3.5-5.1) Chloride Level 105 MMOL/L (98-107) Carbon Dioxide Level 21 MMOL/L (21-32) Anion Gap 11 mmol/L (5-15) Blood Urea Nitrogen 6 mg/dL (7-18) L Creatinine 0.5 MG/DL (0.55-1.30) L Estimat Glomerular Filtration Rate > 60 mL/min (>60) Glucose Level 85 MG/DL (74-106) Calcium Level 8.6 MG/DL (8.5-10.1) Total Bilirubin 0.7 MG/DL (0.2-1.0) Aspartate Amino Transf (AST/SGOT) 72 U/L (15-37) H Alanine Aminotransferase (ALT/SGPT) 81 U/L (12-78) H Alkaline Phosphatase 69 U/L (46-116) Total Protein 7.2 G/DL (6.4-8.2) Albumin 2.6 G/DL (3.4-5.0) L Globulin 4.6 g/dL Albumin/Globulin Ratio 0.6 (1.0-2.7) L Plan Problems: (1) Acute cholecystitis Assessment & Plan: 28F with abd pain, n/v, leukocytosis. US with GB wall thickening and perichole fluid. exam with RUQ tenderness + murphys. s/p lap debra diet as tolerated activity AM labs plan to d/c home tomorrow will follow with recs. thank you for allowing me to participate in patients care. (2) Abdominal pain Luis Miguel Keita Apr 10, 2019 12:21
--- NOTE | 2019-04-10 12:28 | GI Progress Note ---
Assessment/Plan Problems: (1) Acute cholecystitis ICD Codes: K81.0 - Acute cholecystitis SNOMED: 32820251 (2) Abdominal pain ICD Codes: R10.9 - Unspecified abdominal pain SNOMED: 47702192 Status: progressing Status Narrative Discussed with Dr. Lu. Assessment/Plan Status post laparoscopic cholecystectomy Follow-up surgical recommendations Monitor for postop nausea none vomiting, Zofran as needed Pain management PPI Diet per surgery Follow labs The patient was seen and examined at bedside and all new and available data was reviewed in the patients chart. I agree with the above findings, impression and plan. (Patient seen earlier today. Signature stamp does not reflect patient encounter time.). - Pernell Lu MD Subjective Gastrointestinal/Abdominal: Reports: abdominal pain Objective Last 24 Hour Vital Signs Date Time Temp Pulse Resp B/P (MAP) Pulse Ox O2 Delivery O2 Flow Rate FiO2 04/10/19 12:00 100.4 97 18 121/68 (85) 95 04/10/19 09:01 98 20 98 04/10/19 09:00 Room Air 04/10/19 08:00 98.4 104 17 123/76 (92) 100 04/10/19 04:00 99.1 105 20 107/71 (83) 97 04/10/19 00:00 99.8 103 18 112/68 (83) 98 04/09/19 21:00 Room Air 04/09/19 20:00 98.7 106 18 124/74 (91) 96 04/09/19 16:15 99.9 90 16 109/57 (74) 98 04/09/19 15:15 98.1 105 17 115/67 (83) 96 04/09/19 14:15 98.8 104 18 112/65 (81) 99 04/09/19 13:45 100.0 103 19 112/65 (81) 98 04/09/19 13:15 99.0 105 20 111/67 (82) 96 04/09/19 12:55 97.8 109 18 111/56 99 Nasal Cannula 3 04/09/19 12:45 104 16 108/55 99 Nasal Cannula 3 04/09/19 12:40 114 17 114/56 98 Nasal Cannula 3 04/09/19 12:30 111 18 125/56 100 Nasal Cannula 3 Intake and Output 04/09/19 04/10/19 19:00 07:00 Intake Total 2765.0 ml 337.5 ml Output Total 20 ml Balance 2745.0 ml 337.5 ml Intake Oral 1200 ml 200 ml IV Total 1565.0 ml 137.5 ml Estimated Blood Loss 20 ml # Voids 1 3 Laboratory Tests Test 04/09/19 18:20 04/10/19 05:20 Fibrinogen 883 mg/dL (200-400) H White Blood Count 13.5 K/UL (4.8-10.8) H Red Blood Count 3.84 M/UL (4.20-5.40) L Hemoglobin 10.9 G/DL (12.0-16.0) L Hematocrit 34.2 % (37.0-47.0) L Mean Corpuscular Volume 89 FL (80-99) Mean Corpuscular Hemoglobin 28.5 PG (27.0-31.0) Mean Corpuscular Hemoglobin Concent 32.0 G/DL (32.0-36.0) Red Cell Distribution Width 12.8 % (11.6-14.8) Platelet Count 268 K/UL (150-450) Mean Platelet Volume 7.8 FL (6.5-10.1) Neutrophils (%) (Auto) 78.7 % (45.0-75.0) H Lymphocytes (%) (Auto) 14.2 % (20.0-45.0) L Monocytes (%) (Auto) 6.0 % (1.0-10.0) Eosinophils (%) (Auto) 0.2 % (0.0-3.0) Basophils (%) (Auto) 0.9 % (0.0-2.0) Sodium Level 137 MMOL/L (136-145) Potassium Level 3.6 MMOL/L (3.5-5.1) Chloride Level 105 MMOL/L (98-107) Carbon Dioxide Level 21 MMOL/L (21-32) Anion Gap 11 mmol/L (5-15) Blood Urea Nitrogen 6 mg/dL (7-18) L Creatinine 0.5 MG/DL (0.55-1.30) L Estimat Glomerular Filtration Rate > 60 mL/min (>60) Glucose Level 85 MG/DL (74-106) Calcium Level 8.6 MG/DL (8.5-10.1) Total Bilirubin 0.7 MG/DL (0.2-1.0) Aspartate Amino Transf (AST/SGOT) 72 U/L (15-37) H Alanine Aminotransferase (ALT/SGPT) 81 U/L (12-78) H Alkaline Phosphatase 69 U/L (46-116) Total Protein 7.2 G/DL (6.4-8.2) Albumin 2.6 G/DL (3.4-5.0) L Globulin 4.6 g/dL Albumin/Globulin Ratio 0.6 (1.0-2.7) L Height (Feet): 5 Height (Inches): 1.00 Weight (Pounds): 168 General Appearance: WD/WN, no apparent distress, alert Cardiovascular: normal rate Respiratory/Chest: normal breath sounds, no respiratory distress Abdominal Exam: normal bowel sounds, non tender, soft Extremities: normal range of motion, non-tender Calvin Garcia NP Apr 10, 2019 12:28
[2019-04-10] MEDS: HYDROcodone/Acetamin 5/325 tab ORAL PRN ×2 (15:58→20:14)
[2019-04-10 16:00] VITALS: BP 119/71
--- NOTE | 2019-04-10 19:26 | NUR ---
HAND-OFF: Report given to DEEPAK Andrade. Pt is stable condition.
--- NOTE | 2019-04-10 19:36 | NUR ---
NURSE NOTES: Receive a report from DEEPAK Art. Round is done. Pt is sitting in a chair and states that right upper pain remains. Op sites are clear without any oozing/bleeding. No chilling and febrile sensation. Explains for the healing process. Will continue to monitor and will provide prn pain medication as ordered.
[2019-04-10 20:00] VITALS: BP 125/78
--- NOTE | 2019-04-10 20:16 | General Progress Note ---
Assessment/Plan Problem List: (1) Abdominal pain ICD Codes: R10.9 - Unspecified abdominal pain SNOMED: 82278188 (2) Acute cholecystitis ICD Codes: K81.0 - Acute cholecystitis SNOMED: 46962951 Status: progressing Assessment/Plan: afebrile lap cholycestectomy no acute events decrease in abdominal pain Subjective ROS Limited/Unobtainable: Yes Gastrointestinal/Abdominal: Reports: abdominal pain Allergies: Coded Allergies: No Known Allergies (Unverified , 03/02/19) Objective Last 24 Hour Vital Signs Date Time Temp Pulse Resp B/P (MAP) Pulse Ox O2 Delivery O2 Flow Rate FiO2 04/10/19 16:00 98.8 97 18 119/71 (87) 96 04/10/19 13:30 98.4 04/10/19 13:30 98.4 04/10/19 12:00 100.4 97 18 121/68 (85) 95 04/10/19 09:01 98 20 98 04/10/19 09:00 Room Air 04/10/19 08:00 98.4 104 17 123/76 (92) 100 04/10/19 04:00 99.1 105 20 107/71 (83) 97 04/10/19 00:00 99.8 103 18 112/68 (83) 98 04/09/19 21:00 Room Air Intake and Output 04/09/19 04/10/19 19:00 07:00 Intake Total 2765.0 ml 337.5 ml Output Total 20 ml Balance 2745.0 ml 337.5 ml Intake Oral 1200 ml 200 ml IV Total 1565.0 ml 137.5 ml Estimated Blood Loss 20 ml # Voids 1 3 Laboratory Tests 04/10/19 05:20: White Blood Count 13.5H, Red Blood Count 3.84L, Hemoglobin 10.9L, Hematocrit 34.2L, Mean Corpuscular Volume 89, Mean Corpuscular Hemoglobin 28.5, Mean Corpuscular Hemoglobin Concent 32.0, Red Cell Distribution Width 12.8, Platelet Count 268, Mean Platelet Volume 7.8, Neutrophils (%) (Auto) 78.7H, Lymphocytes ( %) (Auto) 14.2L, Monocytes (%) (Auto) 6.0, Eosinophils (%) (Auto) 0.2, Basophils (%) (Auto) 0.9, Sodium Level 137, Potassium Level 3.6, Chloride Level 105, Carbon Dioxide Level 21, Anion Gap 11, Blood Urea Nitrogen 6L, Creatinine 0.5L, Estimat Glomerular Filtration Rate > 60, Glucose Level 85, Calcium Level 8.6, Total Bilirubin 0.7, Aspartate Amino Transf (AST/SGOT) 72H, Alanine Aminotransferase (ALT/SGPT) 81H, Alkaline Phosphatase 69, Total Protein 7.2, Albumin 2.6L, Globulin 4.6, Albumin/Globulin Ratio 0.6L Height (Feet): 5 Height (Inches): 1.00 Weight (Pounds): 168 Cardiovascular: normal peripheral pulses Respiratory/Chest: lungs clear Wendi Lay MD Apr 10, 2019 20:16
--- NOTE | 2019-04-10 21:30 | NUR ---
NURSE NOTES: After pain medication, pain intensity did not improve much but refuses to get more pain medication. Mild nausea noted. Provide PRN Zofran 4mg IVP. Currently on ATB treatment. Will continue to monitor.
[2019-04-11] VITALS: BP 114/64
--- NOTE | 2019-04-11 01:50 | NUR ---
NURSE NOTES: Pt just awoke and states that pain is minimal. No noted nausea sensation. Will continue to monitor. Encourage for sleep.
[2019-04-11 04:00] VITALS: BP 124/71
[2019-04-11] MEDS: Piperacillin/Tazobactam 3.375 GM in NS 110 ML IVPB SCH (05:39)
[2019-04-11] MEDS: HYDROcodone/Acetamin 5/325 tab ORAL PRN ×2 (05:46→09:51)
[2019-04-11 06:10] LABS: BASOPHILS % (AUTO) 0.9 % (0.0-2.0); EOSINOPHILS % (AUTO) 1.4 % (0.0-3.0); HEMATOCRIT 32.3 % (37.0-47.0); HEMOGLOBIN 10.4 G/DL (12.0-16.0); LYMPHOCYTES % (AUTO) 21.4 % (20.0-45.0); MEAN CORPUSCULAR VOLUME 89 FL (80-99); MONOCYTES % (AUTO) 6.1 % (1.0-10.0); NEUTROPHILS % (AUTO) 70.2 % (45.0-75.0); PLATELET COUNT 252 K/UL (150-450); RED BLOOD COUNT 3.62 M/UL (4.20-5.40); RED CELL DISTRIBUTION WIDTH 12.9 % (11.6-14.8); WHITE BLOOD COUNT 11.9 K/UL (4.8-10.8)
[2019-04-11 06:24] LABS: ANION GAP 11 mmol/L (5-15); BLOOD UREA NITROGEN 6 mg/dL (7-18); CALCIUM 8.7 MG/DL (8.5-10.1); CARBON DIOXIDE 23 MMOL/L (21-32); CHLORIDE 106 MMOL/L (98-107); CREATININE 0.4 MG/DL (0.55-1.30); POTASSIUM 3.3 MMOL/L (3.5-5.1); SODIUM 140 MMOL/L (136-145)
--- NOTE | 2019-04-11 07:24 | NUR ---
NURSE NOTES: Received report from DEEPAK Andrade. Rounding done with outgoing nurse. Pt a/o x 4, in bed. c/o abd pain as 5/10 also stat pain is getting low. Pain medicine was given by card boxer nurse. Bed in lowest position, call light within reach. Will continue to monitor.
[2019-04-11 08:00] VITALS: BP 121/70
--- NOTE | 2019-04-11 10:43 | Surgery Progress Note ---
Surgery Progress Note Subjective Procedure Performed lap debra Additional Comments doing well no acute events pain improved tolerating diet labs improved Objective Last 24 Hour Vital Signs Date Time Temp Pulse Resp B/P (MAP) Pulse Ox O2 Delivery O2 Flow Rate FiO2 04/11/19 09:00 Room Air 04/11/19 08:00 98.1 83 20 121/70 (87) 97 04/11/19 04:00 98.6 90 18 124/71 (88) 97 04/11/19 00:00 97.6 96 18 114/64 (81) 95 04/10/19 21:00 Room Air 04/10/19 20:00 97.9 96 18 125/78 (94) 97 04/10/19 16:00 98.8 97 18 119/71 (87) 96 04/10/19 13:30 98.4 04/10/19 13:30 98.4 04/10/19 12:00 100.4 97 18 121/68 (85) 95 I&O Intake and Output 04/10/19 04/11/19 18:59 06:59 Intake Total 1062.5 ml 150 ml Balance 1062.5 ml 150 ml Intake Oral 980 ml 150 ml IV Total 82.5 ml # Voids 3 2 Dressing: dry Wound: clean Cardiovascular: RSR Respiratory: clear Abdomen: soft, flat, non-tender, present bowel sounds Extremities: no edema, no tenderness, no cyanosis Laboratory Tests Test 04/11/19 04:35 White Blood Count 11.9 K/UL (4.8-10.8) H Red Blood Count 3.62 M/UL (4.20-5.40) L Hemoglobin 10.4 G/DL (12.0-16.0) L Hematocrit 32.3 % (37.0-47.0) L Mean Corpuscular Volume 89 FL (80-99) Mean Corpuscular Hemoglobin 28.7 PG (27.0-31.0) Mean Corpuscular Hemoglobin Concent 32.2 G/DL (32.0-36.0) Red Cell Distribution Width 12.9 % (11.6-14.8) Platelet Count 252 K/UL (150-450) Mean Platelet Volume 7.5 FL (6.5-10.1) Neutrophils (%) (Auto) 70.2 % (45.0-75.0) Lymphocytes (%) (Auto) 21.4 % (20.0-45.0) Monocytes (%) (Auto) 6.1 % (1.0-10.0) Eosinophils (%) (Auto) 1.4 % (0.0-3.0) Basophils (%) (Auto) 0.9 % (0.0-2.0) Sodium Level 140 MMOL/L (136-145) Potassium Level 3.3 MMOL/L (3.5-5.1) L Chloride Level 106 MMOL/L (98-107) Carbon Dioxide Level 23 MMOL/L (21-32) Anion Gap 11 mmol/L (5-15) Blood Urea Nitrogen 6 mg/dL (7-18) L Creatinine 0.4 MG/DL (0.55-1.30) L Estimat Glomerular Filtration Rate > 60 mL/min (>60) Glucose Level 80 MG/DL (74-106) Calcium Level 8.7 MG/DL (8.5-10.1) Plan Problems: (1) Acute cholecystitis Assessment & Plan: 28F with abd pain, n/v, leukocytosis. US with GB wall thickening and perichole fluid. exam with RUQ tenderness + murphys. s/p lap debra diet as tolerated activity AM labs d/c home rx written f/u given will follow with recs. thank you for allowing me to participate in patients care. (2) Abdominal pain Luis Miguel Keita Apr 11, 2019 10:43
--- NOTE | 2019-04-11 10:44 | Infectious Diseases Prog Note ---
Assessment/Plan Assessment/Plan IMPRESSION: Sepsis with leukocytosis and tachycardia. Acute cholecystitis, Gangrenous status post laparoscopic cholecystectomy. Obesity and Gastroesophageal reflux disease. Peritoneal cyst RECOMMENDATION: Agree with discharge with PO Cipro & Flagyl X 4 days Subjective ROS Limited/Unobtainable: No Constitutional: Reports: no symptoms Respiratory: Reports: no symptoms Gastrointestinal/Abdominal: Reports: no symptoms Genitourinary: Reports: no symptoms Allergies: Coded Allergies: No Known Allergies (Unverified , 03/02/19) Objective Vital Signs Last 24 Hour Vital Signs Date Time Temp Pulse Resp B/P (MAP) Pulse Ox O2 Delivery O2 Flow Rate FiO2 04/11/19 09:00 Room Air 04/11/19 08:00 98.1 83 20 121/70 (87) 97 04/11/19 04:00 98.6 90 18 124/71 (88) 97 04/11/19 00:00 97.6 96 18 114/64 (81) 95 04/10/19 21:00 Room Air 04/10/19 20:00 97.9 96 18 125/78 (94) 97 04/10/19 16:00 98.8 97 18 119/71 (87) 96 04/10/19 13:30 98.4 04/10/19 13:30 98.4 04/10/19 12:00 100.4 97 18 121/68 (85) 95 Height (Feet): 5 Height (Inches): 1.00 Weight (Pounds): 168 General Appearance: no acute distress HEENT: mucous membranes moist Respiratory/Chest: lungs clear Cardiovascular: normal rate Abdomen: soft, non tender Extremities: no edema Neurologic/Psychiatric: alert, oriented x 3, responsive Laboratory Tests Test 04/11/19 04:35 White Blood Count 11.9 K/UL (4.8-10.8) H Red Blood Count 3.62 M/UL (4.20-5.40) L Hemoglobin 10.4 G/DL (12.0-16.0) L Hematocrit 32.3 % (37.0-47.0) L Mean Corpuscular Volume 89 FL (80-99) Mean Corpuscular Hemoglobin 28.7 PG (27.0-31.0) Mean Corpuscular Hemoglobin Concent 32.2 G/DL (32.0-36.0) Red Cell Distribution Width 12.9 % (11.6-14.8) Platelet Count 252 K/UL (150-450) Mean Platelet Volume 7.5 FL (6.5-10.1) Neutrophils (%) (Auto) 70.2 % (45.0-75.0) Lymphocytes (%) (Auto) 21.4 % (20.0-45.0) Monocytes (%) (Auto) 6.1 % (1.0-10.0) Eosinophils (%) (Auto) 1.4 % (0.0-3.0) Basophils (%) (Auto) 0.9 % (0.0-2.0) Sodium Level 140 MMOL/L (136-145) Potassium Level 3.3 MMOL/L (3.5-5.1) L Chloride Level 106 MMOL/L (98-107) Carbon Dioxide Level 23 MMOL/L (21-32) Anion Gap 11 mmol/L (5-15) Blood Urea Nitrogen 6 mg/dL (7-18) L Creatinine 0.4 MG/DL (0.55-1.30) L Estimat Glomerular Filtration Rate > 60 mL/min (>60) Glucose Level 80 MG/DL (74-106) Calcium Level 8.7 MG/DL (8.5-10.1) Current Medications Medications (Trade) Dose Ordered Sig/Marnie Route PRN Reason Start Time Stop Time Status Last Admin Dose Admin Acetaminophen (Tylenol) 650 mg Q4H PRN ORAL fever 04/08/19 13:30 05/08/19 13:29 04/10/19 12:15 Acetaminophen/ Hydrocodone Bitart ([place] 5/325) 1 tab Q4H PRN ORAL Moderate Pain (Pain Scale 4-6) 04/10/19 12:30 04/17/19 12:29 04/11/19 09:51 Diphenhydramine HCl (Benadryl) 25 mg Q8H PRN ORAL Itching/Pruritis 04/09/19 15:00 05/09/19 14:59 Folic Acid (Folate) 1 mg DAILY ORAL 04/11/19 09:00 05/11/19 08:59 04/11/19 08:36 Ondansetron HCl (Zofran) 4 mg Q6H PRN IVP Nausea & Vomiting 04/08/19 13:30 05/08/19 13:29 04/10/19 21:38 Piperacillin Sod/ Tazobactam Sod 3.375 gm/Sodium Chloride 110 ml @ 27.5 mls/hr EVERY 8 HOURS IVPB 04/08/19 15:00 04/13/19 14:59 04/11/19 05:39 Markus Mayfield MD Apr 11, 2019 10:44
[2019-04-11] MEDS ORDERED: CIPRO500 MG/51 PO (10:59)
[2019-04-11] MEDS ORDERED: NORCO 5-325 TA1 EACH ORAL (11:00)
[2019-04-11] MEDS ORDERED: METRONIDAZOLE500 MG ORAL (11:00)
[2019-04-11] MEDS ORDERED: COLACE100 MG ORAL (11:01)
--- NOTE | 2019-04-11 11:22 | NUR ---
*-* INSURANCE *-* UPDATED CLINICALS AND REVIEWS HAVE BEEN FAXED TO: [employer] REF#[id number] NO MOTOR VEHICLE OR [employer] SALESPERSON ASSIGNED YET PH#[phone] [employer] FAX#[phone] REVIEWS/CLINICALS
[2019-04-11 12:00] VITALS: BP 118/55
--- NOTE | 2019-04-11 12:11 | GI Progress Note ---
Assessment/Plan Problems: (1) Acute cholecystitis ICD Codes: K81.0 - Acute cholecystitis SNOMED: 32508426 (2) Abdominal pain ICD Codes: R10.9 - Unspecified abdominal pain SNOMED: 72410526 Status: stable Status Narrative Discussed with Dr. Lu. Assessment/Plan Status post laparoscopic cholecystectomy Follow-up surgical recommendations Monitor for postop nausea none vomiting, Zofran as needed Pain management PPI Diet per surgery Follow labs dc planning The patient was seen and examined at bedside and all new and available data was reviewed in the patients chart. I agree with the above findings, impression and plan. (Patient seen earlier today. Signature stamp does not reflect patient encounter time.). - Pernell Lu MD Subjective Gastrointestinal/Abdominal: Reports: no symptoms Objective Last 24 Hour Vital Signs Date Time Temp Pulse Resp B/P (MAP) Pulse Ox O2 Delivery O2 Flow Rate FiO2 04/11/19 09:00 Room Air 04/11/19 08:00 98.1 83 20 121/70 (87) 97 04/11/19 04:00 98.6 90 18 124/71 (88) 97 04/11/19 00:00 97.6 96 18 114/64 (81) 95 04/10/19 21:00 Room Air 04/10/19 20:00 97.9 96 18 125/78 (94) 97 04/10/19 16:00 98.8 97 18 119/71 (87) 96 04/10/19 13:30 98.4 04/10/19 13:30 98.4 Intake and Output 04/10/19 04/11/19 19:00 07:00 Intake Total 1062.5 ml 150 ml Balance 1062.5 ml 150 ml Intake Oral 980 ml 150 ml IV Total 82.5 ml # Voids 3 2 Laboratory Tests Test 04/11/19 04:35 White Blood Count 11.9 K/UL (4.8-10.8) H Red Blood Count 3.62 M/UL (4.20-5.40) L Hemoglobin 10.4 G/DL (12.0-16.0) L Hematocrit 32.3 % (37.0-47.0) L Mean Corpuscular Volume 89 FL (80-99) Mean Corpuscular Hemoglobin 28.7 PG (27.0-31.0) Mean Corpuscular Hemoglobin Concent 32.2 G/DL (32.0-36.0) Red Cell Distribution Width 12.9 % (11.6-14.8) Platelet Count 252 K/UL (150-450) Mean Platelet Volume 7.5 FL (6.5-10.1) Neutrophils (%) (Auto) 70.2 % (45.0-75.0) Lymphocytes (%) (Auto) 21.4 % (20.0-45.0) Monocytes (%) (Auto) 6.1 % (1.0-10.0) Eosinophils (%) (Auto) 1.4 % (0.0-3.0) Basophils (%) (Auto) 0.9 % (0.0-2.0) Sodium Level 140 MMOL/L (136-145) Potassium Level 3.3 MMOL/L (3.5-5.1) L Chloride Level 106 MMOL/L (98-107) Carbon Dioxide Level 23 MMOL/L (21-32) Anion Gap 11 mmol/L (5-15) Blood Urea Nitrogen 6 mg/dL (7-18) L Creatinine 0.4 MG/DL (0.55-1.30) L Estimat Glomerular Filtration Rate > 60 mL/min (>60) Glucose Level 80 MG/DL (74-106) Calcium Level 8.7 MG/DL (8.5-10.1) Height (Feet): 5 Height (Inches): 1.00 Weight (Pounds): 168 General Appearance: WD/WN, no apparent distress, alert Cardiovascular: normal rate Respiratory/Chest: normal breath sounds, no respiratory distress Abdominal Exam: normal bowel sounds, non tender, soft Extremities: normal range of motion, non-tender Calvin Garcia PRICING CLERK Apr 11, 2019 12:10
--- NOTE | 2019-04-11 14:30 | NUR ---
NURSE NOTES: Discharge instruction was given. All belongings checked with pt. Removed IV line and arm band. Pt discharged with her family in stable condition.
--- NOTE | 2019-04-11 16:22 | Hematology/Onc Progress Note ---
Assessment/Plan Assessment/Plan Assessment and Recs # Anemia due to folic acid deficiency with low folate --> replete with folic acid 1mg po daily has been started --> trend hgb 111-->10.9-->10.4 --> she has been improving s/p surgery, recovering --> meds have been reviewed --> anemia panel shows acd # Lab abnormalities with elevated fibrinogen 883 --> likely a reactive process --> at this time, has no evidence of DIC # Leukocytosis due to initial sepsis/tachycardia as well, can be related to surg --> s/p lap choly --> per gi is on zosyn, continue # Obesity # GERD --> PPi as per gi # DVT ppx with ambulation -> add lovenox tomorrow if patient still here The timing of this note does not necessarily reflect the time of the patient was seen. GREATLY APPRECIATE CONSULTATION. Subjective Allergies: Coded Allergies: No Known Allergies (Unverified , 03/02/19) Subjective 04/10: vs stable, s/p surgery, passing gas 04/11: vs stable, no acute events, labs reviewed, dc planning Objective Objective Last 24 Hour Vital Signs Date Time Temp Pulse Resp B/P (MAP) Pulse Ox O2 Delivery O2 Flow Rate FiO2 04/11/19 12:00 98.6 78 20 118/55 (76) 96 04/11/19 09:00 Room Air 04/11/19 08:00 98.1 83 20 121/70 (87) 97 04/11/19 04:00 98.6 90 18 124/71 (88) 97 04/11/19 00:00 97.6 96 18 114/64 (81) 95 04/10/19 21:00 Room Air 04/10/19 20:00 97.9 96 18 125/78 (94) 97 04/10/19 16:00 98.8 97 18 119/71 (87) 96 04/10/19 13:30 98.4 04/10/19 13:30 98.4 04/10/19 12:00 100.4 97 18 121/68 (85) 95 04/10/19 09:01 98 20 98 04/10/19 09:00 Room Air 04/10/19 08:00 98.4 104 17 123/76 (92) 100 04/10/19 04:00 99.1 105 20 107/71 (83) 97 04/10/19 00:00 99.8 103 18 112/68 (83) 98 04/09/19 21:00 Room Air 04/09/19 20:00 98.7 106 18 124/74 (91) 96 Intake and Output 04/10/19 04/11/19 19:00 07:00 Intake Total 1062.5 ml 150 ml Balance 1062.5 ml 150 ml Intake Oral 980 ml 150 ml IV Total 82.5 ml # Voids 3 2 Labs Test 04/09/19 04:35 04/09/19 18:20 04/10/19 05:20 04/11/19 04:35 White Blood Count 12.9 K/UL (4.8-10.8) 13.5 K/UL (4.8-10.8) 11.9 K/UL (4.8-10.8) Red Blood Count 3.91 M/UL (4.20-5.40) 3.84 M/UL (4.20-5.40) 3.62 M/UL (4.20-5.40) Hemoglobin 11.1 G/DL (12.0-16.0) 10.9 G/DL (12.0-16.0) 10.4 G/DL (12.0-16.0) Hematocrit 34.9 % (37.0-47.0) 34.2 % (37.0-47.0) 32.3 % (37.0-47.0) Mean Corpuscular Volume 89 FL (80-99) 89 FL (80-99) 89 FL (80-99) Mean Corpuscular Hemoglobin 28.5 PG (27.0-31.0) 28.5 PG (27.0-31.0) 28.7 PG (27.0-31.0) Mean Corpuscular Hemoglobin Concent 32.0 G/DL (32.0-36.0) 32.0 G/DL (32.0-36.0) 32.2 G/DL (32.0-36.0) Red Cell Distribution Width 12.8 % (11.6-14.8) 12.8 % (11.6-14.8) 12.9 % (11.6-14.8) Platelet Count 228 K/UL (150-450) 268 K/UL (150-450) 252 K/UL (150-450) Mean Platelet Volume 8.3 FL (6.5-10.1) 7.8 FL (6.5-10.1) 7.5 FL (6.5-10.1) Neutrophils (%) (Auto) 70.3 % (45.0-75.0) 78.7 % (45.0-75.0) 70.2 % (45.0-75.0) Lymphocytes (%) (Auto) 21.5 % (20.0-45.0) 14.2 % (20.0-45.0) 21.4 % (20.0-45.0) Monocytes (%) (Auto) 6.4 % (1.0-10.0) 6.0 % (1.0-10.0) 6.1 % (1.0-10.0) Eosinophils (%) (Auto) 1.2 % (0.0-3.0) 0.2 % (0.0-3.0) 1.4 % (0.0-3.0) Basophils (%) (Auto) 0.6 % (0.0-2.0) 0.9 % (0.0-2.0) 0.9 % (0.0-2.0) Differential Total Cells Counted 100 Neutrophils % (Manual) 67 % (45-75) Lymphocytes % (Manual) 21 % (20-45) Monocytes % (Manual) 11 % (1-10) Eosinophils % (Manual) 1 % (0-3) Basophils % (Manual) 0 % (0-2) Band Neutrophils 0 % (0-8) Other Cell Type See comments Platelet Estimate Adequate Platelet Morphology Normal Reticulocyte Count 1.3 % (0.5-2.0) Prothrombin Time 11.2 SEC (9.30-11.50) Prothromb Time International Ratio 1.1 (0.9-1.1) Activated Partial Thromboplast Time 29 SEC (23-33) Sodium Level 142 MMOL/L (136-145) 137 MMOL/L (136-145) 140 MMOL/L (136-145) Potassium Level 3.5 MMOL/L (3.5-5.1) 3.6 MMOL/L (3.5-5.1) 3.3 MMOL/L (3.5-5.1) Chloride Level 109 MMOL/L (98-107) 105 MMOL/L (98-107) 106 MMOL/L (98-107) Carbon Dioxide Level 21 MMOL/L (21-32) 21 MMOL/L (21-32) 23 MMOL/L (21-32) Anion Gap 12 mmol/L (5-15) 11 mmol/L (5-15) 11 mmol/L (5-15) Blood Urea Nitrogen 11 mg/dL (7-18) 6 mg/dL (7-18) 6 mg/dL (7-18) Creatinine 0.5 MG/DL (0.55-1.30) 0.5 MG/DL (0.55-1.30) 0.4 MG/DL (0.55-1.30) Estimat Glomerular Filtration Rate > 60 mL/min (>60) > 60 mL/min (>60) > 60 mL/min (>60) Glucose Level 72 MG/DL (74-106) 85 MG/DL (74-106) 80 MG/DL (74-106) Calcium Level 8.6 MG/DL (8.5-10.1) 8.6 MG/DL (8.5-10.1) 8.7 MG/DL (8.5-10.1) Iron Level 27 ug/dL (50-175) Total Iron Binding Capacity 182 ug/dL (250-450) Percent Iron Saturation 15 % (15-50) Unsaturated Iron Binding 155 ug/dL (112-346) Ferritin 143 NG/ML (8-388) Total Bilirubin 0.7 MG/DL (0.2-1.0) 0.7 MG/DL (0.2-1.0) Aspartate Amino Transf (AST/SGOT) 23 U/L (15-37) 72 U/L (15-37) Alanine Aminotransferase (ALT/SGPT) 50 U/L (12-78) 81 U/L (12-78) Alkaline Phosphatase 70 U/L (46-116) 69 U/L (46-116) Total Protein 7.1 G/DL (6.4-8.2) 7.2 G/DL (6.4-8.2) Total Protein (PEP) 7.1 g/dL (6.0-8.5) Albumin 2.8 G/DL (3.4-5.0) 2.6 G/DL (3.4-5.0) Albumin (PEP) 3.4 g/dL (2.9-4.4) Globulin 4.3 g/dL 4.6 g/dL Globulin (PEP) 3.7 g/dL (2.2-3.9) Albumin/Globulin Ratio 0.9 (0.7-1.7) 0.6 (1.0-2.7) Rlcap-6-Icmctylyr 0.4 g/dL (0.0-0.4) Ibppj-4-Uskmchakl 1.0 g/dL (0.4-1.0) Beta Globulins 0.9 g/dL (0.7-1.3) Beta Gamma Globulin 1.4 g/dL (0.4-1.8) PEP Abnormal Protein Bands Not observed g/dL (Not Protein Electrophoresis Interpret Comment (.) Carcinoembryonic Antigen 0.2 ng/mL (0.0-4.7) Folate 8.5 NG/ML (8.6-58.9) Fibrinogen 883 mg/dL (200-400) Height (Feet): 5 Height (Inches): 1.00 Weight (Pounds): 168 Objective Physical Exam: Vitals: reviewed General Appearance: NAD HEENT: normocephalic, atraumatic Neck: non-tender, normal alignment Respiratory/Chest: normal breath sounds bilaterally Cardiovascular/Chest: normal peripheral pulses, normal rate Abdomen: normal bowel sounds, soft, nontender ++ surg sites noted Extremities: normal range of motion Jose Goldberg MD Apr 11, 2019 16:22
--- NOTE | 2019-04-13 21:04 | Discharge Summary ---
Discharge Summary Discharge Summary _ DATE OF ADMISSION: 04/08/2019 DATE OF DISCHARGE: 04/11/2019 DISCHARGED BY: Dr. Wendi Benoit CONSULTANTS: Dr. Jose Keita BRIEF HOSPITAL COURSE: Patient is a 28-year-old female, with history of obesity and gallstones, presented to ED for evaluation of abdominal pain. She was initially seen in the emergency department 2 days prior complaining of right upper quadrant abdominal pain with nausea and vomiting. She was diagnosed with gallstones earlier in the month by her PCP via outpatient ultrasound. She has not yet seen a surgeon, but did follow-up with the PCP. She stated that overnight, she began to have worsening right upper quadrant epigastric abdominal pain as well as pain in the shoulders bilaterally. She had bilious emesis but nonbloody. She denied diarrhea, lower pelvic pain, vaginal bleeding, vaginal discharge, dysuria or hematuria. She had some fever and temperature of 100 degrees. She was treated for urinary tract infection last visit to ED and was given Keflex, she also received a shot of Rocephin with her PMD. On evaluation at the ED, blood work showed WBC elevated to 17.7. Hemoglobin and hematocrit were stable. Electrolytes were normal. LFTs and lipase were normal. Urinalyses showed +3 leukocyte esterase, +4 blood, +4 ketones, 5-10 urine RBC and 10-15 urine WBC. She was given IV fluids and antiemetics. She was given pain management. Ultrasound of the abdomen showed a large stone at the neck of the gallbladder with a dilated CBD, trace pericholecystic fluid and edematous bladder wall. There was positive sonographic Dumont sign. She was then admitted for acute cholecystitis. She was placed on npo. She was given IV hydration. HIDA scan showed nonvisualization of the gallbladder concerning for acute cholecystitis. Patient had low-grade fever. She was started on Zosyn. On 04/09/2019, she underwent laparoscopic cholecystectomy with drainage of intra -abdominal peritoneal cyst from the gallbladder. She tolerated it well and was taken to postanesthetic care unit in stable condition. Patient was noted to have anemia. Work-up showed deficiency and folate. She was given folic acid daily. She had elevated fibrinogen to 883, likely reactive process. There was no evidence of DIC. First day postop, the shunt was doing well. She has incisional pain however was tolerating diet. Leukocytosis down trended. She was tolerating diet well. Pathology results showed acute and chronic gangrenous cholecystitis. She was cleared for discharge home to continue p.o. ciprofloxacin and Flagyl for 4 more days. FINAL DIAGNOSES: Sepsis with leukocytosis and tachycardia Acute gangrenous cholecystitis status post laparoscopic cholecystectomy Obesity GERD Anemia due to folic acid deficiency Elevated fibrinogen, likely reactive Acute cholecystitis, DISPOSITION: Patient was discharged home. DISCHARGE MEDICATIONS: Refer to Discharge Medication List. DISCHARGE INSTRUCTIONS: Follow-up in a week. I have been assigned to complete a discharge summary on this account, I was not involved with the patient's management.--LIS Cherry Jacqueline Robles NP Apr 13, 2019 21:04
--- NOTE | 2019-04-15 15:22 | NUR ---
*-* INSURANCE *-* DISCHARGE SUMMARY HAVE BEEN FAXED TO: [employer] REF#[id number] NO WOOL WASHING MACHINE OPERATOR ASSIGNED YET PH#[phone] [employer] FAX#[phone] REVIEWS/CLINICALS
== END 2019-04-11 14:30 | disposition home or self-care (01) | DRG 710 ==
LOC: EMR 07:13 → 3E 11:45 → EDBEDREQ 12:53
PROC: 0W9G4ZZ Drainage of Peritoneal Cavity, Percutaneous Endoscopic Approach (ICD-10-PCS; 2019-04-09)
PROC: 0FT44ZZ Resection of Gallbladder, Percutaneous Endoscopic Approach (ICD-10-PCS; principal; 2019-04-09 09:00)
DX: A41.9 Sepsis, unspecified organism (principal); K80.00 Calculus of gallbladder with acute cholecystitis without obstruction; K21.9 Gastro-esophageal reflux disease without esophagitis; E66.9 Obesity, unspecified; D52.9 Folate deficiency anemia, unspecified; K66.8 Other specified disorders of peritoneum; K82.A1 Gangrene of gallbladder in cholecystitis
CPT/HCPCS: 36415; 76700; 78266; 80048; 80053; 81003; 81025; 82248; 82378; 82728; 82746; 83540; 83550; 83690; 84165; 85007; 85025; 85044; 85060; 85384; 85610; 85730; 87086; 94003; 94150; 96361; 96374; 96375; 96376; 99285; J2250; J2405; J2710; J8499

== ENCOUNTER 2020-05-03 09:44 | Emergency (ER) | payer MEDICAID ==
[~2020-05-03] VITALS: Ht 154.9 cm; Wt 88.5 kg
[~2020-05-03 09:44] MED LIST changes: +CIPRO500 MG/51 PO; +COLACE100 MG ORAL; +METRONIDAZOLE500 MG ORAL; +NKM; +NORCO 5-325 TA1 EACH ORAL; +ONDANSETRON ODT4 MG BC
--- NOTE | 2020-05-03 10:16 | NUR ---
ED Nurse Note: Pt ambulated to ed c/o lower mid back pain with nausea and vomting accompanied with spotting in her urine. pt denies fall or trauma. pt reports that she was [place] [facility] [place] and was informed she was having a miscarriage.
[2020-05-03] MEDS ORDERED: Acetaminophen 500mg (ES) tab ORAL ONE (10:30)
[2020-05-03 10:33] LABS: APPEARANCE,URINE SLIGHTLY CLOUDY; BILIRUBIN, URINE 1+ (NEGATIVE); GLUCOSE, URINE (UA) NEGATIVE (NEGATIVE); KETONES,URINE 4+ (NEGATIVE); LEUKOCYTE ESTERASE ,URINE 2+ (NEGATIVE); NITRITE,URINE NEGATIVE (NEGATIVE); PH,URINE 6 (4.5-8.0); PROTEIN,URINE 3+ (NEGATIVE); UROBILINOGEN,URINE 8 MG/DL (0.0-1.0)
--- NOTE | 2020-05-03 10:33 | NUR ---
ED Nurse Note: US at bedside
[2020-05-03 10:37] LABS: COLOR,URINE YELLOW
[2020-05-03 10:38] LABS: BASOPHILS % (AUTO) 2.2 % (0.0-2.0); EOSINOPHILS % (AUTO) 0.2 % (0.0-3.0); HEMATOCRIT 45.4 % (37.0-47.0); HEMOGLOBIN 15.3 G/DL (12.0-16.0); LYMPHOCYTES % (AUTO) 20.4 % (20.0-45.0); MEAN CORPUSCULAR VOLUME 83 FL (80-99); MONOCYTES % (AUTO) 7.3 % (1.0-10.0); NEUTROPHILS % (AUTO) 69.9 % (45.0-75.0); PLATELET COUNT 347 K/UL (150-450); RED BLOOD COUNT 5.49 M/UL (4.20-5.40); WHITE BLOOD COUNT 14.1 K/UL (4.8-10.8)
[2020-05-03 10:41] LABS: ANION GAP 17 mmol/L (5-15); BLOOD UREA NITROGEN 12 mg/dL (7-18); CALCIUM 9.5 MG/DL (8.5-10.1); CARBON DIOXIDE 21 MMOL/L (21-32); CHLORIDE 97 MMOL/L (98-107); CREATININE 0.6 MG/DL (0.55-1.30); POTASSIUM 3.3 MMOL/L (3.5-5.1); SODIUM 134 MMOL/L (136-145)
[2020-05-03 10:46] LABS: ALANINE AMINOTRANSFERASE 122 U/L (12-78); ALBUMIN 4.1 G/DL (3.4-5.0); ALBUMIN/GLOBULIN RATIO 0.8 (1.0-2.7); ALKALINE PHOSPHATASE 69 U/L (46-116); ASPARTATE AMINO TRANSFERASE 65 U/L (15-37); BILIRUBIN,TOTAL 0.9 MG/DL (0.2-1.0)
--- NOTE | 2020-05-03 11:07 | NUR ---
ED Nurse Note: US LEFT BEDSIDE
--- NOTE | 2020-05-03 11:45 | NUR ---
ED Nurse Note: Pt in bed resting using her phone
--- NOTE | 2020-05-03 11:46 | Diagnostic Imaging Report ---
Indication: Positive test, vaginal bleeding Technique: Transabdominal and transvaginal images of the pelvis Comparison: 04/25/2020 Findings: Uterus measures 7 cm length by 4.5 cm AP. The endometrium is markedly thickened, demonstrates cystic spaces. This is only mildly hypovascular, however. The dominant cystic space measures 3.8 x 1.4 cm at appears similar to the previous exam., other cystic spaces but smaller. No definite gestational sac is evident. The right ovary measures 2.3 cm length. The left ovary cannot be visualized. No free cul-de-sac fluid demonstrated. Impression: Thickened endometrium with cystic spaces. Appearance concerning for gestational trophoblastic disease, particularly given markedly elevated (89086) beta-hCG correlate with clinical findings. Dominant cystic space could indicate an empty gestational sac in the setting of a partial molar . Less likely retained products of conception. Given the absence of a gestational sac, possibly of the cardiac could also be considered but is much less likely. Note nonvisualization of the left ovary Findings discussed by phone with Dr. Bishop in the emergency room at the time of interpretation
[2020-05-03 12:26] VITALS: BP 117/77
[2020-05-03] MEDS ORDERED: ONDANSETRON ODT4 MG BC (12:26)
--- NOTE | 2020-05-04 15:37 | Emergency Room Report ---
History of Present Illness General Chief Complaint: Complications Source: Patient Present Illness HPI 29-year-old female presents to ED for vaginal bleeding. Patient states she is . Was seen here about 1 week ago. Was told that she was having a miscarriage. Was referred to see BOTTLE CAPPING MACHINE OPERATOR as outpatient. States that they did not do an ultrasound and a did repeat labs however they would take 2 weeks to come back. States that when she bent over today she felt a pain in her lower back and increased bleeding. Dull, 6 out of 10, nonradiating. No other aggravating relieving factors. Denies any other associated symptoms Allergies: Coded Allergies: No Known Allergies (Unverified , 03/02/19) COVID-19 Screening Contact w/high risk pt: No Experienced COVID-19 symptoms?: No COVID-19 Testing performed PHOTOGRAMMETRIC STEREO COMPILER: No Patient History Past Medical History: none Past Surgical History: debra Pertinent Family History: none Social History: Denies: smoking, alcohol use, drug use Last Menstrual Period: march Now: Yes : 2 Para: 0 Immunizations: UTD Reviewed Nursing Documentation: PMH: Agreed; PSxH: Agreed Nursing Documentation-PMH Past Medical History: No History, Except For Hx Cardiac Problems: No Hx Cancer: No Hx Gastrointestinal Problems: Yes - gallbladder surgery mar 2019 Hx Neurological Problems: No Review of Systems All Other Systems: negative except mentioned in HPI Physical Exam Vital Signs Date Time Temp Pulse Resp B/P (MAP) Pulse Ox O2 Delivery O2 Flow Rate FiO2 05/03/20 09:55 98.2 106 16 113/71 (85) 96 Room Air Sp02 EP Interpretation: reviewed, normal General Appearance: no apparent distress, alert, GCS 15, non-toxic Head: normocephalic, atraumatic Eyes: bilateral eye normal inspection, bilateral eye PERRL ENT: hearing grossly normal, normal pharynx, no angioedema, normal voice Neck: full range of motion, supple/symm/no masses Respiratory: chest non-tender, lungs clear, normal breath sounds, speaking full sentences Cardiovascular #1: regular rate, rhythm, no edema Cardiovascular #2: 2+ carotid (R), 2+ carotid (L), 2+ radial (R), 2+ radial (L), 2+ dorsalis pedis (R), 2+ dorsalis pedis (L) Gastrointestinal: normal bowel sounds, non tender, soft, non-distended, no gu arding, no rebound Rectal: deferred Genitourinary: normal inspection, no CVA tenderness Musculoskeletal: back normal, normal range of motion, gait/station normal, non- tender Neurologic: alert, motor strength/tone normal, oriented x3, sensory intact, responsive, speech normal Psychiatric: judgement/insight normal, memory normal, mood/affect normal, no suicidal/homicidal ideation Reflexes: 3+ bicep (R), 3+ bicep (L), 3+ tricep (R), 3+ tricep (L), 3+ knee (R), 3+ knee (L) Lymphatic: no adenopathy Medical Decision Making Diagnostic Impression: Primary Impression: Molar ER Course Hospital Course 29-year-old female presents with vaginal bleeding. Seen here 1 week ago with presumed miscarriage Differential diagnoses include: gastrits, gastroenterits, ectopic , o varian torsion/cyst, UTI Clinical course Patient placed on stretcher in ED. After initial history and physical I ordered labs, IV fluids and US Labs-no leukocytosis, electrolytes okay, beta hCG greater than 60,000, UA unremarkable Pelvic ultrasound- concerning for trophoblastic gestational disease I reviewed EMR. Patient was seen last week by myself. Beta quantitative in the 30,000 range. Had ultrasound with thickened endometrium but no definitive IUP. Concern was for miscarriage. However given the increase in the beta quantitative along with this ultrasound finding I contacted BOTTLE CAPPING MACHINE OPERATOR. Dr. Garza. Stated that this patient will require a D&C and I discussed findings with patient. Explained that this is nonviable and she will need close follow-up with BOTTLE CAPPING MACHINE OPERATOR for D&C. Patient states she understands. Safe for discharge with close outpatient follow-up. I will provide BOTTLE CAPPING MACHINE OPERATOR referrals Diagnosis - molar Stable and discharged to home with destinee. Followup with PMD/BOTTLE CAPPING MACHINE OPERATOR. Return to ED if symptoms recur or worsen Labs Test 05/03/20 09:45 05/03/20 10:04 White Blood Count 14.1 K/UL (4.8-10.8) Red Blood Count 5.49 M/UL (4.20-5.40) Hemoglobin 15.3 G/DL (12.0-16.0) Hematocrit 45.4 % (37.0-47.0) Mean Corpuscular Volume 83 FL (80-99) Mean Corpuscular Hemoglobin 27.8 PG (27.0-31.0) Mean Corpuscular Hemoglobin Concent 33.7 G/DL (32.0-36.0) Red Cell Distribution Width 12.0 % (11.6-14.8) Platelet Count 347 K/UL (150-450) Mean Platelet Volume 8.9 FL (6.5-10.1) Neutrophils (%) (Auto) 69.9 % (45.0-75.0) Lymphocytes (%) (Auto) 20.4 % (20.0-45.0) Monocytes (%) (Auto) 7.3 % (1.0-10.0) Eosinophils (%) (Auto) 0.2 % (0.0-3.0) Basophils (%) (Auto) 2.2 % (0.0-2.0) Sodium Level 134 MMOL/L (136-145) Potassium Level 3.3 MMOL/L (3.5-5.1) Chloride Level 97 MMOL/L (98-107) Carbon Dioxide Level 21 MMOL/L (21-32) Anion Gap 17 mmol/L (5-15) Blood Urea Nitrogen 12 mg/dL (7-18) Creatinine 0.6 MG/DL (0.55-1.30) Estimat Glomerular Filtration Rate > 60 mL/min (>60) Glucose Level 96 MG/DL (74-106) Calcium Level 9.5 MG/DL (8.5-10.1) Total Bilirubin 0.9 MG/DL (0.2-1.0) Aspartate Amino Transf (AST/SGOT) 65 U/L (15-37) Alanine Aminotransferase (ALT/SGPT) 122 U/L (12-78) Alkaline Phosphatase 69 U/L (46-116) Total Protein 9.0 G/DL (6.4-8.2) Albumin 4.1 G/DL (3.4-5.0) Globulin 4.9 g/dL Albumin/Globulin Ratio 0.8 (1.0-2.7) Lipase 173 U/L (73-393) Human Chorionic Gonadotropin, Quant 77806 mIU/mL (1-6) Urine Color Yellow Urine Appearance Slightly cloudy Urine pH 6 (4.5-8.0) Urine Specific [place] 1.020 (1.005-1.035) Urine Protein 3+ (NEGATIVE) Urine Glucose (UA) Negative (NEGATIVE) Urine Ketones 4+ (NEGATIVE) Urine Blood 5+ (NEGATIVE) Urine Nitrite Negative (NEGATIVE) Urine Bilirubin 1+ (NEGATIVE) Urine Ictotest Positive (NEGATIVE) Urine Urobilinogen 8 MG/DL (0.0-1.0) Urine Leukocyte Esterase 2+ (NEGATIVE) Urine RBC 30-40 /HPF (0 - 2) Urine WBC 5-10 /HPF (0 - 2) Urine Squamous Epithelial Cells Few /LPF (NONE/OCC) Urine Bacteria Few /HPF (NONE) Urine Mucus Few /LPF (NONE/OCC) Urine HCG, Qualitative Positive (NEGATIVE) CT/MRI/US Diagnostic Results CT/MRI/US Diagnostic Results : Imaging Test Ordered: OB US Impression Procedure: US OB Transvaginal Indication: Positive test, vaginal bleeding Technique: Transabdominal and transvaginal images of the pelvis Comparison: 04/25/2020 Findings: Uterus measures 7 cm length by 4.5 cm AP. The endometrium is markedly thickened, demonstrates cystic spaces. This is only mildly hypovascular, however. The dominant cystic space measures 3.8 x 1.4 cm at appears similar to the previous exam., other cystic spaces but smaller. No definite gestational sac is evident. The right ovary measures 2.3 cm length. The left ovary cannot be visualized. No free cul-de-sac fluid demonstrated. Impression: Thickened endometrium with cystic spaces. Appearance concerning for gestational trophoblastic disease, particularly given markedly elevated (44686) beta-hCG correlate with clinical findings. Dominant cystic space could indicate an empty gestational sac in the setting of a partial molar . Less likely retained products of conception. Given the absence of a gestational sac, possibly of the cardiac could also be considered but is much less likely. Note nonvisualization of the left ovary Findings discussed by phone with Dr. Bishop in the emergency room at the time of interpretation Last Vital Signs Date Time Temp Pulse Resp B/P (MAP) Pulse Ox O2 Delivery O2 Flow Rate FiO2 05/03/20 12:26 98.5 79 19 117/77 100 Room Air Status: improved Disposition: HOME, SELF-CARE Condition: Stable Scripts Ondansetron Odt* (ZOFRAN ODT*) 4 Mg Tab.rapdis 4 MG BC EVERY 6 HOURS PRN for Nausea & Vomiting, #20 TAB 0 Refills Prov: Hernán Bishop MD 05/03/20 Referrals: NOT CHOSEN IPA/,REFERRING (PCP) [facility] Patient Instructions: Molar Additional Instructions: you need to followup with OBGYN for D&C (Dilatation and curretage) Hernán Bishop MD May 04, 2020 15:37
== END 2020-05-03 12:30 | disposition home or self-care (01) ==
LOC: EMR 10:25
DX: O02.0 Blighted ovum and nonhydatidiform mole (principal)
CPT/HCPCS: 36415; 76801; 76817; 80053; 81003; 81025; 83690; 84702; 85025; 96361; 96374; J2405; J7030; Z7502; 99284